=== PATIENT | female | born 1935 | race Caucasian/White ===

== ENCOUNTER → 2016-05-27 | Outpatient (CLI) | payer OTHER | LOC: BHFA 09:15 | PROVIDERS: ATTEND Internal Medicine Cardiovascular Disease | DX: I50.9 Heart failure, unspecified (principal) ==

== ENCOUNTER 2016-06-13 13:47 | Emergency (ER) | payer OTHER ==
--- NOTE | 2016-06-13 14:11 | EDPHY ---
H & P Time Seen by Provider: 06/13/16 14:08 HPI/ROS: CHIEF COMPLAINT: Hypotension. HISTORY OF PRESENT ILLNESS: The patient is a 81-year-old female with a history of hypertension and CHF who presents for low blood pressure earlier today. She has been taking her Metoprolol for many years for hypertension. She reports that her blood pressure readings have been intermittently low over the past few weeks so she has been decreasing her Metoprolol. Today she measured her blood pressure as 88/55 and it did not go away after a few hours. She became concerned and decided to come to the emergency department. She is eating and drinking normally. She denies recent sickness, black stool, or other complaints. She is not anticoagulated on blood thinners. Her blood pressure here is 134/71. REVIEW OF SYSTEMS: A complete 10-point review of systems was performed and is negative except for those items mentioned in the HPI. Past Medical/Surgical History: Hypertension, thyroid cancer, chronic atrial fibrillation, GERD, scoliosis, congestive heart failure, MVR/tricuspid valve replacement. Social History: Nonsmoker. Smoking Status: Never smoked Physical Exam: General Appearance: Alert, anxious. Eyes: Pupils equal and round, no conjunctival pallor or injection ENT, Mouth: Mucous membranes moist Neck: Normal inspection Respiratory: Lungs are clear to auscultation Cardiovascular: Irregularly irregular rate and rhythm. Gastrointestinal: Abdomen is soft and non- tender Neurological: A&O, nonfocal, normal gait Skin: Warm and dry, no rash Extremities: Nontender, no pedal edema Psychiatric: Anxious Constitutional: Initial Vital Signs Temperature (C) 36.4 C 06/13/16 13:54 Heart Rate 95 06/13/16 13:54 Respiratory Rate 16 06/13/16 13:54 Blood Pressure 103/78 06/13/16 13:54 O2 Sat (%) 97 06/13/16 13:54 O2 Delivery Mode Room Air Allergies/Adverse Reactions: benzonatate [From Tessalon Perles] Allergy (Mild, Verified 06/13/16 13:52) Rash soy Allergy (Verified 06/13/16 13:52) Home Medications: Medication Instructions Recorded Multivitamins W-Minerals [Thera M 1 each PO DAILY 10/26/14 Plus Tablet (*)] Gabapentin [Neurontin 300 MG (*)] 300 mg PO HS 12/07/15 Liothyronine Sodium [Cytomel 25 25 mcg PO DAILY 12/07/15 mcg (*)] Omeprazole 40 mg PO HS 12/07/15 traMADol [Ultram 50 mg (*)] 50 mg PO QID PRN 12/07/15 Ferrous Sulfate 140 mg PO DAILY #60 tablet.er 12/09/15 Levothyroxine [Synthroid 125 mcg 125 mcg PO Q2D@06 #0 tab 12/09/15 (*)] Levothyroxine [Synthroid 175 mcg 175 mcg PO Q2D@06 #0 tab 12/09/15 (*)] Lisinopril 2.5 mg PO DAILY #60 tablet 12/09/15 Metoprolol Succinate Xr [Toprol Xl 100 mg PO DAILY #60 tab 12/09/15 100 mg (*)] Cytomel 06/13/16 Entresto 24 mg/26 mg (RX) 06/13/16 Medical Decision Making - Diagnostics EKG Interpretation: EKG interpreted by me reveals atrial fibrillation, left bundle branch block. ST and T segments normal. Interpretation: abnormal EKG. ED Course/Re-evaluation: EKG ordered. An IV was established and labs ordered. Serial blood pressures remained normal. 1510: [facility] will [facility] the patient to schedule an appointment. 1518: Reassessed patient. Discussed the results of her labwork. She would like a BNP added to her labwork. [facility] has called her and she will see them in the office later this week. I answered all of her questions. I have informed her to take her blood pressure in the morning. If her blood pressure is running low, she will hold the metoprolol. She is comfortable with the plan. She was given return precautions prior to discharge. Differential Diagnosis: Differential diagnosis includes though not limited to dehydration, severe anemia , GI bleed, sepsis, rapid atrial fibrillation. - Data Points Laboratory Results: Laboratory Results 06/13/16 14:25 06/13/16 14:25 06/13/16 14:25 WBC 6.07 10^3/uL (3.80-9.50) RBC 3.71 L 10^6/uL (4.18-5.33) Hgb 11.8 L g/dL (12.6-16.3) Hct 35.0 L % (38.0-47.0) MCV 94.3 fL (81.5-99.8) MCH 31.8 pg (27.9-34.1) MCHC 33.7 g/dL (32.4-36.7) RDW 13.1 % (11.5-15.2) Plt Count 140 L 10^3/uL (150-400) MPV 10.3 fL (8.7-11.7) Neut % (Auto) 52.6 % (39.3-74.2) Lymph % (Auto) 31.1 % (15.0-45.0) [place] % (Auto) 7.6 % (4.5-13.0) Eos % (Auto) 7.4 % (0.6-7.6) Baso % (Auto) 1.0 % (0.3-1.7) Nucleat RBC Rel Count 0.0 % (0.0-0.2) Absolute Neuts (auto) 3.19 10^3/uL (1.70-6.50) Absolute Lymphs (auto) 1.89 10^3/uL (1.00-3.00) Absolute Monos (auto) 0.46 10^3/uL (0.30-0.80) Absolute Eos (auto) 0.45 H 10^3/uL (0.03-0.40) Absolute Basos (auto) 0.06 10^3/uL (0.02-0.10) Absolute Nucleated RBC 0.00 10^3/uL (0-0.01) Immature Gran % 0.3 % (0.0-1.1) Immature Gran # 0.02 10^3/uL (0.00-0.10) Sodium 141 mEq/L (134-144) Potassium 4.3 mEq/L (3.5-5.2) Chloride 106 mEq/L (97-110) Carbon Dioxide 25 mEq/l (22-31) Anion Gap 10 mEq/L (8-16) BUN 19 mg/dL (7-23) Creatinine 0.9 mg/dL (0.6-1.0) Estimated GFR > 60 Glucose 95 mg/dL (70-100) Calcium 9.1 mg/dL (8.5-10.4) Medications Given: Discontinued Medications Sodium Chloride (Ns) 500 mls @ 0 mls/hr IV EDNOW ONE PRN Reason: Wide Open Stop: 06/13/16 14:35 Last Admin: 06/13/16 14:34 Dose: 500 mls Departure - Departure Disposition: Home, Routine, Self-Care Clinical Impression: Dizziness Condition: Good Instructions: Dizziness (ED) Additional Instructions: Your blood pressure is normal in the ED today. Call Dr. Koch tomorrow about your blood pressure medications. You can expect to receive a call from [facility] to schedule an appointment. Return to the emergency department if you experience serious worsening of condition. Referrals: Elder Rodriguez MD [Primary Care Provider] - As per Instructions Chucho Koch MD [Medical Doctor] - As per Instructions Report Scribed for: Lashell Jerome Report Scribed by: Frandy George Date of Report: 06/13/16 Time of Report: 14:24 Physician Review and Approval Statement: 06/13/16 14:10 Portions of this note were transcribed by a medical insurance coding specialist. I personally performed a history, physical exam, medical decision making, and confirmed accuracy of information the transcribed note.
[2016-06-13 14:34] VITALS: O2SAT 96
[2016-06-13] MEDS ORDERED: NS 500 ML IV ONE (14:34)
[2016-06-13 14:42] LABS: % IMMATURE GRANULYOCYTES 0.3 % (0.0-1.1); ABSOLUTE IMMATURE GRANULOCYTES 0.02 10^3/uL (0.00-0.10); ADD DIFF? NO; ADD MORPH? NO; ADD SCAN? NO; ATYPICAL LYMPHOCYTE FLAG 10 (0-99); FRAGMENT RBC FLAG 0 (0-99); HEMOGLOBIN 11.8 g/dL (12.6-16.3); LEFT SHIFT FLG 0 (0-99); LIPEMIA HEMOLYSIS FLAG 80 (0-99); MEAN CELL HEMOGLOBIN 31.8 pg (27.9-34.1); MEAN CELL HEMOGLOBIN CONCENTR. 33.7 g/dL (32.4-36.7); MEAN CELL VOLUME 94.3 fL (81.5-99.8); MEAN PLATELET VOLUME 10.3 fL (8.7-11.7); PLATELET CLUMPS FLAG 10 (0-99); PLATELET COUNT 140 10^3/uL (150-400); RED BLOOD CELL COUNT 3.71 10^6/uL (4.18-5.33); RED CELL DISTRIBUTION WIDTH 13.1 % (11.5-15.2)
--- NOTE | 2016-06-13 14:46 | CPEKG ---
Heart Rate: 81 RR Interval: 741 QRSD Interval: 126 QT Interval: 412 QTC Interval: 479 QRS [place]: -56 T Wave [place]: 91 EKG Severity - ABNORMAL ECG - EKG Impression: ATRIAL FIBRILLATION EKG Impression: LEFT BUNDLE BRANCH BLOCK Electronically Signed By: Lashell Jerome 13-Jun-2016 21:27:41
[2016-06-13 14:53] LABS: ANION GAP 10 mEq/L (8-16); CALCIUM 9.1 mg/dL (8.5-10.4); CARBON DIOXIDE 25 mEq/l (22-31); CHLORIDE 106 mEq/L (97-110); CREATININE 0.9 mg/dL (0.6-1.0); GLOMERULAR FILTRATION RATE > 60; GLUCOSE 95 mg/dL (70-100); POTASSIUM 4.3 mEq/L (3.5-5.2); SODIUM 141 mEq/L (134-144)
[2016-06-13 15:46] VITALS: BP 126/69; PULSE 80; RESP 22; TEMP 97.3
== END 2016-06-13 15:47 | disposition home or self-care (01) ==
DX: R42 Dizziness and giddiness (principal); I10 Essential (primary) hypertension; I50.9 Heart failure, unspecified; D09.3 Carcinoma in situ of thyroid and other endocrine glands

== ENCOUNTER → 2016-08-03 | Outpatient (CLI) | payer OTHER | LOC: FIMAGING 12:45 | PROVIDERS: ATTEND Physical Medicine & Rehabilitation | DX: M50.30 Other cervical disc degeneration, unspecified cervical region (principal) ==

== ENCOUNTER 2016-09-20 11:45 | Inpatient (IN) | payer OTHER ==
--- NOTE | 2016-09-20 11:55 | EDPHY ---
HPI/HX/ROS/PE/MDM Narrative: CHIEF COMPLAINT: Mechanical fall; head trauma, neck pain HPI: This patient is a 81 year old female who presents to the Emergency Department via EMS in a c-collar following a mechanical fall earlier this morning. She states that she was walking out of her front door when she fell backward, hitting her head against the edge of the door. She denies loss of consciousness at the time of the fall. Upon arrival, she complains of pain to her posterior scalp and neck pain. She also complains of pain to the 3rd, 4th, and 5th digits of her left hand. She denies dizziness, confusion, weakness, or visual changes. No additional injuries. She has an extensive cardiac history, as below, but is not taking any anticoagulants at this time. REVIEW OF SYSTEMS: Aside from elements discussed in the HPI, a comprehensive 10-point review of systems was reviewed and is negative. PMH: Chronic atrial fibrillation, CHF, GERD, MVR/tricuspid valve replacement, hypertension, thyroid cancer, scoliosis SOCIAL HISTORY: Never smoked. Son at bedside. PHYSICAL EXAM: General:Patient is alert, conversant, in no acute distress. Head: 3cm linear laceration to the occiput ENT:Eyes are normal to inspection. ENT inspection normal. Neck: Normal inspection. Full range of motion. Respiratory:No respiratory distress. Breath sounds normal bilaterally. Cardiovascular: Regular rate and rhythm. Strong peripheral pulses. Normal cap refill. Abdomen:The abdomen is nontender to palpation. There are no peritoneal signs. There are normal bowel sounds. Back: Normal to inspection. No tenderness to palpation. Skin: Normal color. No rash. Warm and dry. Extremities: Normal appearance. Full range of motion. Neuro: Oriented x3. Normal motor function. Normal sensory function. (Thierno Reed) ED Course: Procedure: Laceration repair. I was requested by Dr. Reed to perform wound closure I explained the indications, risks and benefits for both laceration repair and anesthetic administration. Verbal consent was obtained from the patient and parent. The 7 cm laceration on the occiput was anesthetized using 0.5% bupivicaine with epinephrine . After anesthetic administered the patient was observed for a period of time and had no apparent adverse effects. The wound was cleaned, prepped, draped in normal sterile fashion and explored to its base. No foreign body seen, no foreign bodies palpated. A small galea defects identified closed with 2 simple interrupted 3 0 Vicryl sutures. Skin closed with 11 vince. The wound repair was complex. The procedure was performed by myself. Patient has been informed that scarring will occur, although efforts have been made to minimize this. (Connie Roth) PROCEDURES: Laceration repair performed as above by the PA, Dinah Roth. EKG INTERPRETATION: EKG was ordered and interpreted by myself. Please see [employer] system for official reading. ED COURSE: This 81 year old female presents with head trauma secondary to a mechanical fall. She is wearing a c-collar and complains of neck pain. She states she hit her head when falling and presents with a 3cm laceration to the occiput that will require cleaning and suture repair. Will process CT scan of the head and cervical spine and x-ray of the hand. She has an extensive cardiac history. No anticoagulant use currently. Though she claims that she tripped, will proceed with cardiac workup to ensure that her fall was not caused by a cardiac abnormality. Labs reviewed. Troponin is mildly elevated at 0.049. CT results reported to me by the radiologist. I discussed these with the patient and her son. 1413: On reevaluation, the patient continues to experience rapid atrial fibrillation in HR 120-140 range. She has had her laceration repaired by Dinah Roth and is resting comfortably. I discussed options with her for continued treatment and she requests admission for rapid a fib. 1414: Consultation with Dr. Chas Jerome, hospitalist, who accepts admission. The patient reports that she last took 50mg metoprolol at 700 this morning. She regularly takes 50mg in the morning and 25mg at night. (Thierno Reed) - Data Points Imaging Results: Imaging Impressions Cervical Spine CT 09/20/16 12:10 Impression: 1. Senescent features, with no acute abnormality identified on this unenhanced CT evaluation. 2. Small right occipital scalp hematoma. 3. Chronic schafer-paranasal sinus mucosal thickening with interim maxillary antrectomies since 03/13/2014. UNENHANCED CT SCAN OF THE CERVICAL SPINE TECHNIQUE: A multidetector unenhanced helical CT scan was obtained from the clivus caudally through the upper thoracic spine, with images reformatted at 1.50 mm increments, and are reviewed in soft tissue, bone, and lung windows. Parasagittal and paracoronal reconstructed images are reviewed on the workstation. The DFOV is 15.8 cm. A dose reduction protocol was used. FINDINGS: The bones are demineralized. There is partial osseous fusion seen along the central and posterior portions of the C4-C5 centra, with some stable anterolisthesis of dorsal cortical margins of C4 above C5. There is a trace retrolisthesis at C6-C7, unchanged. There is advanced degenerative disk space narrowing at C5-C6, and [id number] degenerative disk space narrowing at C6-C7. There are ventral and dorsal traction osteophytes at C5-C6 and C6-C7. There is a mild levocervical scoliosis. There is no acute fracture, or facet malalignment. The interspinous distances are normal. There is well-corticated incomplete ossification of the dorsal portion of the C6 spinous process. The craniocervical junction is normal. The predental space, and the atlantoaxial lateral mass alignment is normal. The base and the tip of the dens are normal. There is no prevertebral hematoma or soft tissue swelling, or epidural hematoma identified. The prevertebral soft tissues are normal for age, with bilateral carotid atherosclerotic calcifications. There is some mild biapical pleural- parenchymal fibrosis. The visualized superior mediastinal structures are unremarkable. At the C2-C3 level, there is moderate bilateral facet hypertrophy, with no significant central canal or neural foraminal stenosis. At the C3-C4 level, there is severe bilateral facet hypertrophy with some minimal circumferential disk bulging. There is no significant central canal stenosis. There is moderate right and severe left neural foraminal stenosis. At C4-C5 level, there is a degenerative anterolisthesis and dorsal disk osteophyte complex with severe right facet hypertrophy and moderate left facet hypertrophy. There is a mild central canal stenosis, and a severe right and mild left neural foraminal stenosis. At the C5-C6 level, there is severe degenerative disk space narrowing with ventral and dorsal traction osteophytes. There is facet hypertrophy, right greater than left, with uncovertebral osteophyte formations resulting in severe right neural foraminal stenosis, and mild left neural foraminal stenosis. There is a mild right paracentral canal stenosis, with accompanying lateral recess narrowing. At the C6-C7 level, there is [id number] degenerative disk space narrowing with ventral and dorsal traction osteophytes. There is mild bilateral facet hypertrophy with uncovertebral osteophytes, resulting in moderate central canal stenosis, and severe right and left neural foraminal stenoses. At the C7-T1 level, there is moderate bilateral facet hypertrophy. The central canal and neural foramina remain relatively patent. The visualized upper thoracic spine is notable for degenerative disk space narrowing at T2-T3 and T3-T4, with a trace T3-T4 anterolisthesis. There is also a mild upper dextrothoracic scoliosis. IMPRESSION: Multilevel advanced degenerative features, with no acute cervical osseous abnormality identified. There has been no significant interval change from MR imaging dated 08/03/2016. If there is further clinical concern regarding the patient's symptoms, correlative MR imaging could be considered, if otherwise not contraindicated. Findings and recommendations were discussed with Thierno Reed MD at 1:10 PM , on 09/20/2016. Hand X-Ray 09/20/16 12:10 Impression: 1. No acute osseous findings. 2. Additional findings as above. Head CT 09/20/16 12:10 Impression: 1. Senescent features, with no acute abnormality identified on this unenhanced CT evaluation. 2. Small right occipital scalp hematoma. 3. Chronic schafer-paranasal sinus mucosal thickening with interim maxillary antrectomies since 03/13/2014. UNENHANCED CT SCAN OF THE CERVICAL SPINE TECHNIQUE: A multidetector unenhanced helical CT scan was obtained from the clivus caudally through the upper thoracic spine, with images reformatted at 1.50 mm increments, and are reviewed in soft tissue, bone, and lung windows. Parasagittal and paracoronal reconstructed images are reviewed on the workstation. The DFOV is 15.8 cm. A dose reduction protocol was used. FINDINGS: The bones are demineralized. There is partial osseous fusion seen along the central and posterior portions of the C4-C5 centra, with some stable anterolisthesis of dorsal cortical margins of C4 above C5. There is a trace retrolisthesis at C6-C7, unchanged. There is advanced degenerative disk space narrowing at C5-C6, and [id number]-[id number]-[id number] degenerative disk space narrowing at C6-C7. There are ventral and dorsal traction osteophytes at C5-C6 and C6-C7. There is a mild levocervical scoliosis. There is no acute fracture, or facet malalignment. The interspinous distances are normal. There is well-corticated incomplete ossification of the dorsal portion of the C6 spinous process. The craniocervical junction is normal. The predental space, and the atlantoaxial lateral mass alignment is normal. The base and the tip of the dens are normal. There is no prevertebral hematoma or soft tissue swelling, or epidural hematoma identified. The prevertebral soft tissues are normal for age, with bilateral carotid atherosclerotic calcifications. There is some mild biapical pleural- parenchymal fibrosis. The visualized superior mediastinal structures are unremarkable. At the C2-C3 level, there is moderate bilateral facet hypertrophy, with no significant central canal or neural foraminal stenosis. At the C3-C4 level, there is severe bilateral facet hypertrophy with some minimal circumferential disk bulging. There is no significant central canal stenosis. There is moderate right and severe left neural foraminal stenosis. At C4-C5 level, there is a degenerative anterolisthesis and dorsal disk osteophyte complex with severe right facet hypertrophy and moderate left facet hypertrophy. There is a mild central canal stenosis, and a severe right and mild left neural foraminal stenosis. At the C5-C6 level, there is severe degenerative disk space narrowing with ventral and dorsal traction osteophytes. There is facet hypertrophy, right greater than left, with uncovertebral osteophyte formations resulting in severe right neural foraminal stenosis, and mild left neural foraminal stenosis. There is a mild right paracentral canal stenosis, with accompanying lateral recess narrowing. At the C6-C7 level, there is isgzcbgm-xr-[id number] degenerative disk space narrowing with ventral and dorsal traction osteophytes. There is mild bilateral facet hypertrophy with uncovertebral osteophytes, resulting in moderate central canal stenosis, and severe right and left neural foraminal stenoses. At the C7-T1 level, there is moderate bilateral facet hypertrophy. The central canal and neural foramina remain relatively patent. The visualized upper thoracic spine is notable for degenerative disk space narrowing at T2-T3 and T3-T4, with a trace T3-T4 anterolisthesis. There is also a mild upper dextrothoracic scoliosis. IMPRESSION: Multilevel advanced degenerative features, with no acute cervical osseous abnormality identified. There has been no significant interval change from MR imaging dated 08/03/2016. If there is further clinical concern regarding the patient's symptoms, correlative MR imaging could be considered, if otherwise not contraindicated. Findings and recommendations were discussed with Thierno Reed MD at 1:10 PM , on 09/20/2016. Laboratory Results: Laboratory Results 09/20/16 12:25 09/20/16 12:25 09/20/16 09/20/16 09/20/16 12:25 12:25 12:25 WBC 6.84 10^3/uL 10^3/uL (3.80-9.50) RBC 3.89 10^6/uL L 10^6/uL (4.18-5.33) Hgb 12.0 g/dL L g/dL (12.6-16.3) Hct 36.5 % L % (38.0-47.0) MCV 93.8 fL fL (81.5-99.8) MCH 30.8 pg pg (27.9-34.1) MCHC 32.9 g/dL g/dL (32.4-36.7) RDW 12.5 % % (11.5-15.2) Plt Count 166 10^3/uL 10^3/uL (150-400) MPV 10.3 fL fL (8.7-11.7) Neut % (Auto) 57.7 % % (39.3-74.2) Lymph % (Auto) 24.6 % % (15.0-45.0) [place] % (Auto) 9.2 % % (4.5-13.0) Eos % (Auto) 7.2 % % (0.6-7.6) Baso % (Auto) 1.0 % % (0.3-1.7) Nucleat RBC Rel Count 0.0 % % (0.0-0.2) Absolute Neuts (auto) 3.95 10^3/uL 10^3/uL (1.70-6.50) Absolute Lymphs (auto) 1.68 10^3/uL 10^3/uL (1.00-3.00) Absolute Monos (auto) 0.63 10^3/uL 10^3/uL (0.30-0.80) Absolute Eos (auto) 0.49 10^3/uL H 10^3/uL (0.03-0.40) Absolute Basos (auto) 0.07 10^3/uL 10^3/uL (0.02-0.10) Absolute Nucleated RBC 0.00 10^3/uL 10^3/uL (0-0.01) Immature Gran % 0.3 % % (0.0-1.1) Immature Gran # 0.02 10^3/uL 10^3/uL (0.00-0.10) PT 15.1 SEC H SEC (12.0-15.0) INR 1.19 H (0.83-1.16) APTT 26.3 SEC SEC (23.0-38.0) Sodium 137 mEq/L mEq/L (134-144) Potassium 4.7 mEq/L mEq/L (3.5-5.2) Chloride 104 mEq/L mEq/L (97-110) Carbon Dioxide 24 mEq/l mEq/l (22-31) Anion Gap 9 mEq/L mEq/L (8-16) BUN 19 mg/dL mg/dL (7-23) Creatinine 0.8 mg/dL mg/dL (0.6-1.0) Estimated GFR > 60 Glucose 99 mg/dL mg/dL (70-100) Calcium 9.2 mg/dL mg/dL (8.5-10.4) Troponin I 0.049 ng/mL H ng/mL (0-0.034) Medications Given: Discontinued Medications Hydrocodone Bitart/Acetaminophen ([place] 5/325) 1 tab PO EDNOW ONE Stop: 09/20/16 12:33 Last Admin: 09/20/16 12:41 Dose: 1 tab General Time Seen by Provider: 09/20/16 11:53 Initial Vital Signs: Initial Vital Signs Temperature (C) 36.5 C 09/20/16 11:56 Heart Rate 112 H 09/20/16 11:56 Respiratory Rate 18 09/20/16 11:56 Blood Pressure 151/84 H 09/20/16 11:56 O2 Sat (%) 95 09/20/16 11:56 O2 Delivery Mode Room Air Allergies/Adverse Reactions: benzonatate [From Tessalon Perles] Allergy (Mild, Verified 06/13/16 13:52) Rash soy Allergy (Verified 06/13/16 13:52) Home Medications: Medication Instructions Recorded Multivitamins W-Minerals [Thera M 1 each PO DAILY 10/26/14 Plus Tablet (*)] Gabapentin [Neurontin 300 MG (*)] 300 mg PO HS 12/07/15 Liothyronine Sodium [Cytomel 25 25 mcg PO DAILY 12/07/15 mcg (*)] Omeprazole 40 mg PO HS 12/07/15 traMADol [Ultram 50 mg (*)] 50 mg PO QID PRN 12/07/15 Ferrous Sulfate 140 mg PO DAILY #60 tablet.er 12/09/15 Levothyroxine [Synthroid 125 mcg 125 mcg PO Q2D@06 #0 tab 12/09/15 (*)] Levothyroxine [Synthroid 175 mcg 175 mcg PO Q2D@06 #0 tab 12/09/15 (*)] Lisinopril 2.5 mg PO DAILY #60 tablet 12/09/15 Metoprolol Succinate Xr [Toprol Xl 100 mg PO DAILY #60 tab 12/09/15 100 mg (*)] Cytomel 06/13/16 Entresto 24 mg/26 mg (RX) 06/13/16 Departure - Departure Disposition: [facility] Inpatient Acute Clinical Impression: Rapid atrial fibrillation Scalp laceration Qualifiers: Encounter type: initial encounter Qualified Code(s): S01.01XA - Laceration without foreign body of scalp, initial encounter Head trauma Qualifiers: Encounter type: initial encounter Qualified Code(s): S09.90XA - Unspecified injury of head, initial encounter Fall Qualifiers: Encounter type: initial encounter Qualified Code(s): W19.XXXA - Unspecified fall, initial encounter Condition: Fair Referrals: Patient,NotPresent [Unknown] - As per Instructions Report Scribed for: Thierno Reed Report Scribed by: Nancy Whiting Date of Report: 09/20/16 Time of Report: 11:55 Physician Review and Approval Statement: Portions of this note were transcribed by an ED scribe. I personally performed the history, physical exam, and medical decision making; and confirm the accuracy of the information in the transcribed note.
[2016-09-20] MEDS ORDERED: HYDROCODONE/APAP 5/325 TAB PO ONE (12:32)
--- NOTE | 2016-09-20 12:39 | CPEKG ---
Heart Rate: 117 RR Interval: 513 QRSD Interval: 124 QT Interval: 368 QTC Interval: 514 QRS [place]: -66 T Wave [place]: 88 EKG Severity - ABNORMAL ECG - EKG Impression: ATRIAL FIBRILLATION EKG Impression: LEFT BUNDLE BRANCH BLOCK Electronically Signed By: Thierno Reed 20-Sep-2016 15:16:14
[2016-09-20 12:40] LABS: % IMMATURE GRANULYOCYTES 0.3 % (0.0-1.1); ABSOLUTE IMMATURE GRANULOCYTES 0.02 10^3/uL (0.00-0.10); ADD DIFF? NO; ADD MORPH? NO; ADD SCAN? NO; ATYPICAL LYMPHOCYTE FLAG 20 (0-99); FRAGMENT RBC FLAG 0 (0-99); HEMATOCRIT 36.5 % (38.0-47.0); LEFT SHIFT FLG 0 (0-99); LIPEMIA HEMOLYSIS FLAG 80 (0-99); MEAN CELL HEMOGLOBIN 30.8 pg (27.9-34.1); MEAN CELL HEMOGLOBIN CONCENTR. 32.9 g/dL (32.4-36.7); MEAN CELL VOLUME 93.8 fL (81.5-99.8); MEAN PLATELET VOLUME 10.3 fL (8.7-11.7); PLATELET CLUMPS FLAG 0 (0-99); PLATELET COUNT 166 10^3/uL (150-400); RED BLOOD CELL COUNT 3.89 10^6/uL (4.18-5.33); RED CELL DISTRIBUTION WIDTH 12.5 % (11.5-15.2)
[2016-09-20 12:52] LABS: INR 1.19 (0.83-1.16); PROTIME(PATIENT) 15.1 SEC (12.0-15.0)
[2016-09-20 12:53] LABS: APTT 26.3 SEC (23.0-38.0)
[2016-09-20 12:59] LABS: ANION GAP 9 mEq/L (8-16); CALCIUM 9.2 mg/dL (8.5-10.4); CARBON DIOXIDE 24 mEq/l (22-31); CHLORIDE 104 mEq/L (97-110); CREATININE 0.8 mg/dL (0.6-1.0); GLOMERULAR FILTRATION RATE > 60; GLUCOSE 99 mg/dL (70-100); POTASSIUM 4.7 mEq/L (3.5-5.2); SODIUM 137 mEq/L (134-144)
[2016-09-20 13:10] LABS: TROPONIN I 0.049 ng/mL (0-0.034)
[2016-09-20] MEDS ORDERED: METOPROLOL TARTRATE 25 MG TAB PO ONE (14:19)
[2016-09-20] MEDS ORDERED: ONDANSETRON 4 MG/2 ML VIAL IVP ONE (14:35)
[2016-09-20] MEDS ORDERED: ONDANSETRON 4 MG/2 ML VIAL ONE (15:14)
[2016-09-20] MEDS ORDERED: ONDANSETRON 4 MG/2 ML VIAL IVP PRN (15:18)
[2016-09-20] MEDS ORDERED: ONDANSETRON DISINTEGRATING 4 MG TAB PO PRN (15:46)
[2016-09-20] MEDS ORDERED: ACETAMINOPHEN 325 MG TAB PO PRN (15:46)
[2016-09-20] MEDS ORDERED: MAGNESIUM HYDROXIDE 30 ML UDCUP PO PRN (16:18)
[2016-09-20] MEDS ORDERED: POLYETHYLENE GLYCOL 3350 17 GM PKT PO PRN (16:18)
[2016-09-20] MEDS ORDERED: BISACODYL 10 MG SUPP PR PRN (16:18)
[2016-09-20] MEDS ORDERED: LACTULOSE 20 GM/30 ML UDCUP PO PRN (16:18)
[2016-09-20] MEDS ORDERED: PROMETHAZINE HCL 25 MG TAB PO PRN (16:58)
[2016-09-20] MEDS ORDERED: NS 1,000 ML IV SCH (17:00)
--- NOTE | 2016-09-20 17:05 | PDGENHP ---
History and Physical - Chief Complaint Acute fall - History of Present Illness PCP: Dr. Rodriguez Primary printing roller polisher: Dr. Cuevas/ Dr. Koch HPI: 81-year-old female presents with acute fall characterized as mechanical, falling backward, experiencing associated pain located in the right scalp with immediate bleeding and hematoma formation as well as neck discomfort and left hand trauma. The patient reports that she had been otherwise feeling well and she was at a retail store with her son. She was beginning to feel fatigued from standing so long and her son advised that she go sit down in her car. While she is ambulating through the store, she reports that she fell backward, losing her balance and resulting in trauma to the head neck and hand. She denies any loss of consciousness, denies chest pain palpitations or any other infectious symptoms. She does endorse chronic neck pain for which she has been undergoing neurosurgical evaluation for possible surgery. Her only recent medication change was discontinuation of Entresto aeveral months ago secondary to hypotension, increase in metoprolol to 50 mg of succinate in the morning, 25 mg succinate the evening. History Information - Allergies/Home Medication List Allergies/Adverse Reactions: benzonatate [From Doctor kineticsalJNS [employer]ers[employer]in] Allergy (Mild, Verified 06/13/16 13:52) Rash soy Allergy (Verified 06/13/16 13:52) Home Medications: Gabapentin [Neurontin 300 MG (*)] 300 mg PO HS 12/07/15 [Last Taken 09/19/16] Liothyronine Sodium [Cytomel 25 mcg (*)] 25 mcg PO DAILY 12/07/15 [Last Taken ] Omeprazole 40 mg PO HS 12/07/15 [Last Taken 09/19/16] Benazepril HCl 5 mg PO DAILY 09/20/16 [Last Taken 09/20/16] Herbals/Supplements -Info Only 1 ea PO DAILY 09/20/16 [Last Taken Unknown] Levothyroxine [Synthroid 125 mcg (*)] 125 mcg PO DAILY@09/20/16 [Last Taken 09/20/16] Metoprolol Succinate Xr [Toprol Xl 25 mg (*)] 25 mg PO HS 09/20/16 [Last Taken 09/19/16] Metoprolol Succinate Xr [Toprol Xl 25 mg (*)] 50 mg PO DAILY 09/20/16 [Last Taken 09/20/16] Multivitamins [Multivitamin (*)] 1 each PO DAILY 09/20/16 [Last Taken 09/20/16] I have personally reviewed and updated: family history, medical history, social history, surgical history - Past Medical History atrial fibrillation ( Permanent, not on systemic anticoagulation), CHF ( combined, with known reduced ejection fraction and underlying left bundle branch morphology), GERD, hypertension Additional medical history: TUSHAR. Osteoporosis. Iron deficient anemia. Hypothyroidism - Surgical History Additional surgical history: left atrial appendage with mitral valve and tricuspid valve repair surgeries. Sinus surgery - Family History Additional family history: no recent sick family contacts - Social History Smoking Status: Never smoked Alcohol Use: None Drug Use: None Additional social history: normally independent in her ADLs, has a son who lives locally Review of Systems ROS: 10pt was reviewed & negative except for what was stated in HPI & below Muscolosketal: Reports: other ( neck pain, scalp pain, left hand pain) Skin: Reports: other ( ecchymosis over left hand) Physical Exam Temp Pulse Resp BP Pulse Ox 36.5 C 127 H 19 143/92 H 89 L 09/20/16 11:56 09/20/16 16:00 09/20/16 16:00 09/20/16 16:00 09/20/16 16:00 Constitutional: no apparent distress, appears nourished, not in pain, uncomfortable Eyes: PERRL, anicteric sclera, EOMI Ears, Nose, Mouth, Throat: moist mucous membranes, hearing normal, ears appear normal, no oral mucosal ulcers, other ( no visible ulceration or abscess in her left maxillary incisor area) Cardiovascular: irregularly irregular, tachycardia, No systolic murmur, No edema Respiratory: inspiratory crackles ( clear with cough, left base), No reduced air movement, No expiratory wheeze, No bronchial breath sounds Gastrointestinal: normoactive bowel sounds, soft, non-tender abdomen, no palpable masses Skin: other ( ecchymoses over left 4th digit without any erythema surrounding the right scalp abrasion site) Musculoskeletal: other ( limited range of motion left 4th digit secondary to edema, minimal pain, full range of motion of the PIP and the IP) Neurologic: AAOx3, No weakness ( motor strength 5/5 bilateral lower extremities) , No facial droop Psychiatric: interacting appropriately, not anxious, not encephalopathic, thought process linear Lab Data & Imaging Review 09/20/16 12:25 09/20/16 12:25 WBC 6.84 10^3/uL (3.80-9.50) 09/20/16 12:25 RBC 3.89 10^6/uL (4.18-5.33) L 09/20/16 12:25 Hgb 12.0 g/dL (12.6-16.3) L 09/20/16 12:25 Hct 36.5 % (38.0-47.0) L 09/20/16 12:25 MCV 93.8 fL (81.5-99.8) 09/20/16 12:25 MCH 30.8 pg (27.9-34.1) 09/20/16 12:25 MCHC 32.9 g/dL (32.4-36.7) 09/20/16 12:25 RDW 12.5 % (11.5-15.2) 09/20/16 12:25 Plt Count 166 10^3/uL (150-400) 09/20/16 12:25 MPV 10.3 fL (8.7-11.7) 09/20/16 12:25 Neut % (Auto) 57.7 % (39.3-74.2) 09/20/16 12:25 Lymph % (Auto) 24.6 % (15.0-45.0) 09/20/16 12:25 Gilchrist % (Auto) 9.2 % (4.5-13.0) 09/20/16 12:25 Eos % (Auto) 7.2 % (0.6-7.6) 09/20/16 12:25 Baso % (Auto) 1.0 % (0.3-1.7) 09/20/16 12:25 Nucleat RBC Rel Count 0.0 % (0.0-0.2) 09/20/16 12:25 Absolute Neuts (auto) 3.95 10^3/uL (1.70-6.50) 09/20/16 12:25 Absolute Lymphs (auto) 1.68 10^3/uL (1.00-3.00) 09/20/16 12:25 Absolute Monos (auto) 0.63 10^3/uL (0.30-0.80) 09/20/16 12:25 Absolute Eos (auto) 0.49 10^3/uL (0.03-0.40) H 09/20/16 12:25 Absolute Basos (auto) 0.07 10^3/uL (0.02-0.10) 09/20/16 12:25 Absolute Nucleated RBC 0.00 10^3/uL (0-0.01) 09/20/16 12:25 Immature Gran % 0.3 % (0.0-1.1) 09/20/16 12:25 Immature Gran # 0.02 10^3/uL (0.00-0.10) 09/20/16 12:25 PT 15.1 SEC (12.0-15.0) H 09/20/16 12:25 INR 1.19 (0.83-1.16) H 09/20/16 12:25 APTT 26.3 SEC (23.0-38.0) 09/20/16 12:25 Sodium 137 mEq/L (134-144) 09/20/16 12:25 Potassium 4.7 mEq/L (3.5-5.2) 09/20/16 12:25 Chloride 104 mEq/L (97-110) 09/20/16 12:25 Carbon Dioxide 24 mEq/l (22-31) 09/20/16 12:25 Anion Gap 9 mEq/L (8-16) 09/20/16 12:25 BUN 19 mg/dL (7-23) 09/20/16 12:25 Creatinine 0.8 mg/dL (0.6-1.0) 09/20/16 12:25 Estimated GFR > 60 09/20/16 12:25 Glucose 99 mg/dL (70-100) 09/20/16 12:25 Calcium 9.2 mg/dL (8.5-10.4) 09/20/16 12:25 Troponin I 0.049 ng/mL (0-0.034) H 09/20/16 12:25 Visualized and Interpreted EKG results: Yes EKG Interpretation: Positive for: other ( atrial fibrillation with left bundle branch block) Assessment & Plan Assessment: 81-year-old female presents with acute mechanical fall resulting in permanent atrial fibrillation with acute rapid ventricular response Plan: 1. Fall. Acute, mechanical, resulting in trauma to the left scalp requiring vnice -head CT without intracranial hemorrhage, neck CT without any acute fracture, left hand x-ray demonstrating severe osteoarthritis but no fracture -hold on further trauma evaluation -supportive care with pain medications -get PT and OT evaluations 2. Permanent atrial fibrillation. With acute rapid ventricular response in the setting of pain secondary to above, new problem this provider, further workup indicated. -reviewed outside records including echocardiogram demonstrating ejection fraction of 30-35%, normal right ventricle, moderate to severe left atrial dilatation -reviewed outside records including 12/09/[address] Inocente Rascon, characterizing patient's most recent hospitalization for combined CHF, resulting in increased dosage to metoprolol succinate 100 mg daily, discharged with Lasix and DIANA-inhibitor - discussed with Dr. Reed in the emergency department, given that her heart rate is currently in the 140s in the setting of pain, we have agreed that we will attempt pain management as well as administer 25 mg of metoprolol tartrate at this time orally and monitor rhythm and rate on telemetry in the PCU given her troponin is 0.05 -repeat serum troponin level this evening and tomorrow a.m. to ensure no worsening ischemia from related injury -get TSH level to ensure she is not over corrected -continue metoprolol succinate 50 mg in the morning, 25 mg at night -patient currently not on any form of CVA prevention given that she had left atrial appendage surgery and she does not believe that she warrants systemic anti coagulation or aspirin therapy 3. Chronic CHF. Combined systolic and diastolic, no evidence of acute exacerbation, monitor volume status closely as running low rate IV fluids in the setting of nausea -continue home medications once reconciled Diet. Cardiac Prophylaxis. High risk patient, Lovenox for Code. Full Disposition. Anticipated discharge is 09/21/2016, pending further workup and stabilization of conditions outlined above.
[2016-09-20] MEDS: HYDROCODONE/APAP 10/325 TAB PO PRN (20:14)
[2016-09-20] MEDS: SENNOSIDES/DOCUSATE SODIUM TAB PO SCH (20:14)
[2016-09-20] MEDS: METOPROLOL SUCCINATE XR 25 MG TAB PO SCH (20:14)
[2016-09-20 20:52] LABS: COLOR YELLOW; LEUKOCYTE ESTERASE,URINE 1+ (NEGATIVE); NITRITE,URINE NEGATIVE (NEGATIVE)
[2016-09-20 21:23] LABS: BACTERIA TRACE /hpf (NONE SEEN); MUCUS TRACE /lpf (NONE-1+)
[2016-09-20 21:24] LABS: RBC,URINE NONE SEEN /hpf (0-3); WBC,URINE 0-1 /hpf (0-3)
[2016-09-20 21:34] LABS: TROPONIN I 0.053 ng/mL (0-0.034)
[2016-09-21] MEDS: PANTOPRAZOLE SODIUM 40 MG TAB PO SCH ×2 (00:47→20:59)
[2016-09-21] MEDS: GABAPENTIN 300 MG CAP PO SCH ×2 (00:47→20:59)
[2016-09-21] MEDS: ONDANSETRON 4 MG/2 ML VIAL IVP PRN ×2 (01:56→10:38)
[2016-09-21 04:44] LABS: % IMMATURE GRANULYOCYTES 0.3 % (0.0-1.1); ABSOLUTE IMMATURE GRANULOCYTES 0.02 10^3/uL (0.00-0.10); ADD DIFF? NO; ADD MORPH? NO; ADD SCAN? NO; ATYPICAL LYMPHOCYTE FLAG 20 (0-99); FRAGMENT RBC FLAG 0 (0-99); HEMOGLOBIN 10.6 g/dL (12.6-16.3); LEFT SHIFT FLG 0 (0-99); LIPEMIA HEMOLYSIS FLAG 80 (0-99); MEAN CELL HEMOGLOBIN 30.8 pg (27.9-34.1); MEAN CELL HEMOGLOBIN CONCENTR. 33.1 g/dL (32.4-36.7); MEAN PLATELET VOLUME 10.4 fL (8.7-11.7); PLATELET CLUMPS FLAG 10 (0-99); PLATELET COUNT 153 10^3/uL (150-400); RED BLOOD CELL COUNT 3.44 10^6/uL (4.18-5.33); RED CELL DISTRIBUTION WIDTH 12.6 % (11.5-15.2)
[2016-09-21 05:00] LABS: ALANINE AMINOTRANSFERASE 20 IU/L (9-52); ALKALINE PHOSPHATASE 71 IU/L (38-126); ANION GAP 8 mEq/L (8-16); ASPARTATE AMINOTRANSFERASE 17 IU/L (14-46); CALCIUM 8.8 mg/dL (8.5-10.4); CARBON DIOXIDE 24 mEq/l (22-31); CHLORIDE 106 mEq/L (97-110); CREATININE 0.8 mg/dL (0.6-1.0); GLOMERULAR FILTRATION RATE > 60; GLUCOSE 89 mg/dL (70-100); MAGNESIUM 1.9 mg/dL (1.6-2.3); POTASSIUM 4.6 mEq/L (3.5-5.2); SODIUM 138 mEq/L (134-144); TOTAL PROTEIN 5.9 g/dL (6.3-8.2)
[2016-09-21 05:11] LABS: TROPONIN I 0.065 ng/mL (0-0.034)
[2016-09-21] MEDS ORDERED: LEVOTHYROXINE 125 MCG TAB PO SCH (06:00)
[2016-09-21] MEDS: HYDROCODONE/APAP 10/325 TAB PO PRN (07:39)
[2016-09-21] MEDS: BENAZEPRIL HCL 10 MG TAB PO SCH (08:50)
[2016-09-21] MEDS: METOPROLOL SUCCINATE XR 50 MG TAB PO SCH (08:50)
[2016-09-21] MEDS: MULTIVITAMINS 1 EACH TAB PO SCH (08:51)
[2016-09-21] MEDS: ENOXAPARIN 40 MG/0.4 ML SYR SC SCH (08:52)
[2016-09-21] MEDS: SENNOSIDES/DOCUSATE SODIUM TAB PO SCH ×2 (08:52→20:59)
[2016-09-21] MEDS ORDERED: LIOTHYRONINE SODIUM 25 MCG TAB PO SCH (09:00)
[2016-09-21] MEDS ORDERED: Herbals/Supplements -Info Only PO SCH (09:00)
--- NOTE | 2016-09-21 11:05 | HOSPPROG ---
Hospitalist Progress Note Assessment/Plan: Head injury after ground level fall - Initial head CT neg for intracranial bleed , +scalp hematoma. I suspect post-concussive syndrome with nausea, dizziness, difficulty with ambulation. She has also had some nausea and vomiting. Given her persistent symptoms, will repeat head CT now. I discussed the case with Dr. Caldwell from the trauma service. Exogenous hyperthyroidism - h/o thyroid cancer, followed by Dr. Ribeiro, who has apparently been recommending to her that she decrease her thyroid dose. Her TSH has been undetectable by our lab history dating back to 2009. She is agreeable to reducing her dose. Decrease Levothyroxine to 75 from 125 and Liothyronine to 12.5 from 25. Will need f/u with Dr. Ribeiro and repeat TSH in 4-6 weeks. A fib - now rate controlled. Hyperthyroidism may be provoking. She has declined anti-coagulation or ASA. Would re-visit daily ASA prior to dc, though defer for now given her head injury. Elevated trop - flat this am. Suspect strain in setting of rapid a fib. No chest pain. LBBB - this is chronic. Reviewed echo from 11/2015, EF 30-35%, moderate MR with severely dilated left and right atrium. Given her dizziness, fall and rapid A fib, will repeat echo to ensure no worsening VHD as a cause of her dizziness and falls. Dispo - change to inpt as she'll need acute PT/OT, further w/u as above, not safe for discharge today Subjective: Pt feels very unstable on her feet, "I can't walk". Complains of dizziness, headache. No CP or SOB. Objective: Vital Signs Temp Pulse Resp BP Pulse Ox 36.4 C 74 18 133/72 H 99 09/21/16 07:59 09/21/16 07:59 09/21/16 07:59 09/21/16 07:59 09/21/16 07:59 Laboratory Results 09/21/16 04:09 09/21/16 04:09 09/20/16 09/21/16 09/22/16 05:59 05:59 05:59 Intake Total 2240 Output Total 950 Balance 1290 PT 15.1 SEC (12.0-15.0) H 09/20/16 12:25 INR 1.19 (0.83-1.16) H 09/20/16 12:25 - Physical Exam Constitutional: no apparent distress Eyes: PERRL, EOMI Ears, Nose, Mouth, Throat: moist mucous membranes, other (scalp hematoma) Cardiovascular: irregularly irregular Respiratory: no respiratory distress, clear to auscultation Gastrointestinal: normoactive bowel sounds, soft, non-tender abdomen Skin: warm Neurologic: AAOx3 Psychiatric: interacting appropriately ICD10 Worksheet Patient Problems: Problems Problem Status Onset Atrial fibrillation Acute Rapid atrial fibrillation Acute Congestive heart failure Acute Chronic Disease [facility]/Transitional Care Acute Scalp laceration Acute Head trauma Acute Fall Acute
--- NOTE | 2016-09-21 14:45 | ECHO ---
[id number] + + [address] : : [place] [address] : : [phone] + + Adult Echocardiographic Report + ---------+ :Name: TRE DURAN MStudy Date: 09/21/2016 12:59 PM : : Hospital Admission Number: [id number] Cassidy harmon: 213: :: 1935 Gender: Female Height: 67 i n : :Age: 81 yrs Race: WH,White Weight: 170 lb : :Reason For Study: Eval LV Fx : : BSA: 1.9 met ers2 : :History: Dizziness, falls, Mitral Valve repair, Tricuspid valve : :repair. : + ---------+ MMode/2D Measurements \T\ Calculations IVSd: 1.0 cm LVIDd: 5.3 cm FS: 13.0 % MV Diam: 3.0 cm LVPWd: 1.2 cm LVIDs: 4.6 cm EDV(Teich): 136.6 ml ESV(Teich): 98.7 ml EF(Teich): 27.7 % Ao root diam: 3.4 cm ACS: 2.0 cm LA dimension: 5.1 cm Normal Measurement Values: + + :LVIDd (3.5-5.7cm) IVSd (0.6-1.1cm) LVPWd (0.6-1.1cm) Aortic Root (2.0-3.7cm)Left Atrium (1.5-4.0cm): :LV Vol(d) (76-115ml) LV Vol(s) (29-48ml) Ejec Fraction (50-65%)PV Uriel (0.6- 1.2m/s) TV Uriel (0.4-1.0m/s) : :MV E Uriel (0.8-1.0m/s)MV A Uriel (0.3-1.0m/s)LVOT Uriel (0.7-1.2m/s) Asc Ao Uriel ( 0.9-1.8m/s) : + + Doppler Measurements \T\ Calculations MV E max uriel: MV V2 mean: MV P1/2t max uriel: Ao mean P.4 cm/sec 88.0 cm/sec 150.7 cm/sec 3.7 mmHg MV dec time: MV mean PG: MV P1/2t: 46.4 msec Ao V2 mean: 0.18 sec 3.6 mmHg MVA(P1/2t): 4.7 cm2 90.4 cm/sec MV V2 VTI: 29.4 cm MV dec slope: Ao V2 VTI: MV area (1 diam): 28.0 cm 7.1 cm2 950.9 cm/sec2 MV Flow area (1diam): 7.1 cm2 LV V1 max: MR max uriel: MR(RF 1 diam): SV(MV 1 diam): 68.6 cm/sec 366.5 cm/sec 10.3 % 208.1 ml LV V1 max PG: MR max PG: SI(MV 1 diam): 1.9 mmHg 53.7 mmHg 110.3 ml/m2 LV V1 mean P.1 mmHg LV V1 mean: 50.3 cm/sec LV V1 VTI: 14.7 cm PA V2 max: PI end-d uriel: RF(MV,Ao)(1 diam): - 73.3 cm/sec 149.3 cm/sec 0.21 PA max P.1 mmHg Left Ventricle The left ventricle is normal in size. There is normal left ventricular wall thickness. Ejection Fraction = 30%. There is severe global hypokinesis of the left ventricle. Right Ventricle The right ventricle is normal size. Atria The left atrium is severely dilated. The right atrium is severely dilated. Mitral Valve There is mild mitral annular calcification. There is no mitral valve stenosis. There is mild mitral regurgitation. An annuloplasty ring is noted in the mitral position. Tricuspid Valve There is trace tricuspid regurgitation. An annuloplasty ring is noted in the tricuspid position. Aortic Valve The aortic valve is trileaflet. There is no aortic stenosis. There is no aortic insufficiency. Pulmonic Valve The pulmonic valve is normal in structure and function. Mild pulmonic valvular regurgitation. Great Vessels The aortic root is normal size. Pericardium/Pleural There is no pericardial effusion. Conclusion A complete two-dimensional transthoracic echocardiogram was performed (2D, M-mode, Doppler and color flow Doppler). There is severe global hypokinesis of the left ventricle. Ejection Fraction = 30%. The right ventricle is normal size. The left atrium is severely dilated. There is mild mitral annular calcification. There is mild mitral regurgitation. An annuloplasty ring is noted in the mitral position. An annuloplasty ring is noted in the tricuspid position. There is trace tricuspid regurgitation. There is no aortic stenosis. The aortic valve is trileaflet. Mild pulmonic valvular regurgitation. The aortic root is normal size. There is no pericardial effusion. Compared with 12/08/2015, MR improved Final Reading Physician: Dr Yuly Thomas electronically signed on 09/21/2016 02:43 PM Ordering Physician: Kacey Henderson Performed By: Cesar Parker, RDCS
[2016-09-21] MEDS: METOPROLOL SUCCINATE XR 25 MG TAB PO SCH (20:59)
[2016-09-22] MEDS: LEVOTHYROXINE 75 MCG TAB PO SCH (05:56)
[2016-09-22] MEDS: SENNOSIDES/DOCUSATE SODIUM TAB PO SCH ×2 (08:23→21:24)
[2016-09-22] MEDS: METOPROLOL SUCCINATE XR 50 MG TAB PO SCH (08:24)
[2016-09-22] MEDS: BENAZEPRIL HCL 10 MG TAB PO SCH (08:24)
[2016-09-22] MEDS: LIOTHYRONINE SODIUM 25 MCG TAB PO SCH (08:25)
[2016-09-22] MEDS: MULTIVITAMINS 1 EACH TAB PO SCH (08:26)
[2016-09-22] MEDS: ENOXAPARIN 40 MG/0.4 ML SYR SC SCH (08:33)
--- NOTE | 2016-09-22 15:14 | PDIAF ---
- Diagnosis Diagnosis: fall Code Status: Full Code - Medication Management Discharge Medications: Medications to Continue on Transfer Gabapentin [Neurontin 300 MG (*)] 300 mg PO HS 12/07/15 [Last Taken 09/19/16] Omeprazole 40 mg PO HS 12/07/15 [Last Taken 09/19/16] Benazepril HCl 5 mg PO DAILY 09/20/16 [Last Taken 09/20/16] Herbals/Supplements -Info Only 1 ea PO DAILY 09/20/16 [Last Taken Unknown] Metoprolol Succinate Xr [Toprol Xl 25 mg (*)] 25 mg PO HS 09/20/16 [Last Taken 09/19/16] Metoprolol Succinate Xr [Toprol Xl 25 mg (*)] 50 mg PO DAILY 09/20/16 [Last Taken 09/20/16] Multivitamins [Multivitamin (*)] 1 each PO DAILY 09/20/16 [Last Taken 09/20/16] Acetaminophen [Tylenol 325mg (*)] 650 mg PO Q4HRS PRN #0 tab 09/22/16 [Last Taken Unknown] Levothyroxine [Synthroid 75 mcg (*)] 75 mcg PO DAILY AT 6AM #30 tab 09/22/16 [ Last Taken Unknown] Liothyronine Sodium [Cytomel 25 mcg (*)] 12.5 mcg PO DAILY #0 tab 09/22/16 [ Last Taken Unknown] Discharge Medications: Refer to the Discharge Home Medication list for PRN reason. - Orders Services needed: Registered Nurse, Physical Therapy Diet Recommendation: no restrictions on diet Diet Texture: Regular Texture Diet - Follow Up Care Current Providers and Referrals: Patient,NotPresent [Unknown] - As per Instructions
--- NOTE | 2016-09-22 15:26 | GDS ---
[f rep st] DISCHARGE SUMMARY DISCHARGE DIAGNOSES: 1. Scalp laceration after a ground level fall. 2. Exogenous hyperthyroidism. 3. Atrial fibrillation with rapid ventricular response likely provoked from hyperthyroidism. 4. Elevated troponin. 5. Chronic left bundle branch block. 6. Chronic systolic heart failure. CONSULTANTS: None. HOSPITAL COURSE AND STAY BY PROBLEM: 1. Mechanical fall and scalp laceration: The patient was complaining of some problems with balance and headache. She has had 2 CT scans of her head that have been unremarkable. On day of discharge , her ability to ambulate has improved. 2. Atrial fibrillation with rapid ventricular response: The patient was found to have an iatrogeni nona suppressed TSH which could very well be contributing to her tachycardia. We have decreased he r Synthroid 75 mcg and decreased her Cytomel to 12.5 mcg. She will need further outpatient monitori ng with a repeat TSH in 4-6 weeks. The patient is reluctant to be on anticoagulation for her atrial fibrillation. She should further discuss anticoagulation or aspirin therapy with her primary care provider. PHYSICAL EXAMINATION: VITAL SIGNS: On day of discharge, blood pressure 132/87, pulse of 83, respir atory rate 12, O2 saturation 91% on room air, temperature afebrile. GENERAL: No acute distress. H EART: S1, S2. Irregularly irregular. LUNGS: Clear. ABDOMEN: Soft. EXTREMITIES: No edema. PERTINENT LABS AND STUDIES: Echocardiogram done 09/21/2016, refer to report. She does have an ejec tion fraction of 30%. DISCHARGE MEDICATIONS: Please refer to discharge medication reconciliation in [facility] for full det ails. Below is a preliminary list of medications that have been changed: Synthroid was decreased f rom 125 mcg to 75 mcg per day. Cytomel was decreased from 25 mcg to 12.5 mcg per day. She should c ontinue her home dose of benazepril 5 mg daily. DISCHARGE INSTRUCTIONS: The patient will be discharged from the hospital where she should follow up with her primary care provider in the next week for routine hospital followup. She should have a r epeat TSH done in 4-6 weeks. We should consider up titrating her DIANA inhibitor as tolerated with he r decreased ejection fraction of 30%. She should also have further discussions in regard to anticoa gulation with atrial fibrillation. /[id number]/MODL
--- NOTE | 2016-09-22 15:53 | PDIAF ---
- Diagnosis Diagnosis: fall Code Status: Full Code - Medication Management Discharge Medications: Medications to Continue on Transfer Gabapentin [Neurontin 300 MG (*)] 300 mg PO HS 12/07/15 [Last Taken 09/19/16] Omeprazole 40 mg PO HS 12/07/15 [Last Taken 09/19/16] Benazepril HCl 5 mg PO DAILY 09/20/16 [Last Taken 09/20/16] Herbals/Supplements -Info Only 1 ea PO DAILY 09/20/16 [Last Taken Unknown] Metoprolol Succinate Xr [Toprol Xl 25 mg (*)] 25 mg PO HS 09/20/16 [Last Taken 09/19/16] Metoprolol Succinate Xr [Toprol Xl 25 mg (*)] 50 mg PO DAILY 09/20/16 [Last Taken 09/20/16] Multivitamins [Multivitamin (*)] 1 each PO DAILY 09/20/16 [Last Taken 09/20/16] Acetaminophen [Tylenol 325mg (*)] 650 mg PO Q4HRS PRN #0 tab 09/22/16 [Last Taken Unknown] Levothyroxine [Synthroid 75 mcg (*)] 75 mcg PO DAILY AT 6AM #30 tab 09/22/16 [ Last Taken Unknown] Liothyronine Sodium [Cytomel 25 mcg (*)] 12.5 mcg PO DAILY #0 tab 09/22/16 [ Last Taken Unknown] Discharge Medications: Refer to the Discharge Home Medication list for PRN reason. - Orders Services needed: Home Care, Registered Nurse, Physical Therapy Home Care Face to Face: I certify that this patient was under my care and that I had the required [id number] encounter meeting the encounter requirements on the discharge day. My findings support the fact that the patient is homebound as defined in CMS Chapter 7 Medicare Benefits Manual 30.1.1, The condition of the patient is such that there exists a normal inability to leave home and consequently, leaving home would require a considerable and taxing effort. Diet Recommendation: no restrictions on diet Diet Texture: Regular Texture Diet - Follow Up Care Current Providers and Referrals: Patient,NotPresent [Unknown] - As per Instructions
[2016-09-22] MEDS: GABAPENTIN 300 MG CAP PO SCH (21:23)
[2016-09-22] MEDS: PANTOPRAZOLE SODIUM 40 MG TAB PO SCH (21:24)
[2016-09-22] MEDS: METOPROLOL SUCCINATE XR 25 MG TAB PO SCH (21:24)
[2016-09-23] MEDS: LEVOTHYROXINE 75 MCG TAB PO SCH (06:17)
[2016-09-23] MEDS: BENAZEPRIL HCL 10 MG TAB PO SCH (08:03)
[2016-09-23] MEDS: METOPROLOL SUCCINATE XR 50 MG TAB PO SCH (08:03)
[2016-09-23] MEDS: LIOTHYRONINE SODIUM 25 MCG TAB PO SCH (08:04)
[2016-09-23] MEDS: SENNOSIDES/DOCUSATE SODIUM TAB PO SCH ×2 (08:04→20:56)
[2016-09-23] MEDS: ENOXAPARIN 40 MG/0.4 ML SYR SC SCH (08:05)
[2016-09-23] MEDS: MULTIVITAMINS 1 EACH TAB PO SCH (08:05)
--- NOTE | 2016-09-23 12:54 | HOSPPROG ---
Hospitalist Progress Note Assessment/Plan: 81 y/o female presenting with fall found to have afib with rvr dc was planned for 09/22, but was held due to weakness #weakness likely multifactorial in the setting of iatrogenic hyperthyroidism/ poorly controlled afib with rvr/poor nutrition #afib with rvr now with improved rate control possibly exacerbated by iatrogenic hyperthyroidism #compensated systolic HF plan -pt to weak to dc home -control current rate controlling meds -thyroid replacement has been decreased -plan to dc to snf for rehab when bed available -no anticoagulation for afib (pt has refused) Subjective: still weak and unsteady on feet. denies room spinning vertigo. no chest pain or sob Objective: Vital Signs Temp Pulse Resp BP Pulse Ox 36.3 C 75 21 H 118/72 96 09/23/16 07:37 09/23/16 07:37 09/23/16 07:37 09/23/16 07:37 09/23/16 07:37 09/22/16 09/23/16 09/24/16 05:59 05:59 05:59 Intake Total 700 650 Output Total 1500 1500 Balance -800 -850 PT 15.1 SEC (12.0-15.0) H 09/20/16 12:25 INR 1.19 (0.83-1.16) H 09/20/16 12:25 - Physical Exam Constitutional: no apparent distress, appears nourished, not in pain Cardiovascular: no murmur, rub, or gallop, irregularly irregular, No JVD, No edema Respiratory: no respiratory distress, no rales or rhonchi, clear to auscultation , No rhonchi Gastrointestinal: normoactive bowel sounds, soft, non-tender abdomen, no palpable masses, No guarding, No rebound Neurologic: AAOx3, sensation intact bilaterally ICD10 Worksheet Patient Problems: Problems Problem Status Onset Fall Acute Head trauma Acute Rapid atrial fibrillation Acute Scalp laceration Acute Atrial fibrillation Acute Chronic Disease Mgmt/Transitional Care Acute Congestive heart failure Acute
[2016-09-23] MEDS ORDERED: LOPERAMIDE HCL 2 MG CAP PO PRN (17:29)
[2016-09-23] MEDS: METOPROLOL SUCCINATE XR 25 MG TAB PO SCH (20:50)
[2016-09-23] MEDS: GABAPENTIN 300 MG CAP PO SCH (20:51)
[2016-09-23] MEDS: PANTOPRAZOLE SODIUM 40 MG TAB PO SCH (20:51)
[2016-09-24] MEDS: LEVOTHYROXINE 75 MCG TAB PO SCH (06:01)
[2016-09-24 07:43] VITALS: BP 121/64; PULSE 84; RESP 18; TEMP 97.3; O2SAT 98
[2016-09-24] MEDS: ENOXAPARIN 40 MG/0.4 ML SYR SC SCH (08:45)
[2016-09-24] MEDS: LIOTHYRONINE SODIUM 25 MCG TAB PO SCH (08:46)
[2016-09-24] MEDS: SENNOSIDES/DOCUSATE SODIUM TAB PO SCH (08:46)
[2016-09-24] MEDS: MULTIVITAMINS 1 EACH TAB PO SCH (08:51)
[2016-09-24] MEDS: METOPROLOL SUCCINATE XR 50 MG TAB PO SCH (08:51)
[2016-09-24] MEDS: BENAZEPRIL HCL 10 MG TAB PO SCH (08:52)
--- NOTE | 2016-09-24 10:22 | GDS ---
[f rep st] DISCHARGE SUMMARY DISCHARGE DIAGNOSES: 1. Scalp laceration due to a ground level fall. 2. Exogenous hypothyroidism. 3. Atrial fibrillation with rapid ventricular response likely provoked from hyperthyroidism. 4. Elevated troponin. 5. Chronic left bundle branch block. 6. Chronic systolic congestive heart failure with ejection fraction of 30%. CONSULTANTS: None. HOSPITAL COURSE: Ground level fall with scalp laceration, found to be in atrial fibrillation with r apid ventricular response and likely iatrogenic hyperthyroidism. The patient presented to the [facility] on 09/20/2016. She continued to be weak, but was initially thought to be stable for discharge o n 09/22/2016. On the afternoon of 09/22, the patient almost fell again and was subsequently held in the hospital due to deconditioning and weakness and is ultimately being discharged today to a [facility] nursing facility for further rehabilitation. Please refer to the dictated Discharge Summary date d 09/22/2016, for full hospital details. PHYSICAL EXAMINATION: VITAL SIGNS: On day of discharge, blood pressure 121/64, pulse 84, respirato ry rate 18, O2 saturation 98% on 2 L, temperature afebrile. GENERAL: No acute distress. HEART: S 1, S2. LUNGS: Clear. ABDOMEN: Soft. EXTREMITIES: No edema. DISCHARGE MEDICATIONS: Please refer to Discharge Medication Reconciliation in [facility]. DISCHARGE INSTRUCTIONS: The patient will be transferred to detention facility for further adri abilitation. Once again, her Synthroid and Cytomel have been cut in half. She will need outpatient followup of her TSH in 4-6 weeks. She will also need her scalp vince removed in the next week. /[id number]/MODL
== END 2016-09-24 12:12 | DRG 605 ==
LOC: EDBD → EDUNIT# → F2W 15:45 → OBSVTOIN 09-21 11:01
PROVIDERS: ADMIT Internal Medicine; ATTEND Family Medicine
PROC: 0HQ0XZZ Repair Scalp Skin, External Approach (ICD-10-PCS; principal; 2016-09-21)
DX: S01.01XA Laceration without foreign body of scalp, initial encounter (principal); I11.9 Hypertensive heart disease without heart failure; I50.42 Chronic combined systolic (congestive) and diastolic (congestive) heart failure; I48.2 Chronic atrial fibrillation; K21.9 Gastro-esophageal reflux disease without esophagitis; I44.7 Left bundle-branch block, unspecified; E05.80 Other thyrotoxicosis without thyrotoxic crisis or storm; W01.198A Fall on same level from slipping, tripping and stumbling with subsequent striking against other object, initial encounter; Y92.513 Shop (commercial) as the place of occurrence of the external cause; Z95.3 Presence of xenogenic heart valve
CPT/HCPCS: 92523-GN; 96374; 97116-GP; 97162-GP; 97166-GO; 97530-GO; 97530-GP; 97535-GO; G0378; G8978-GP-CJ; G8979-GP-CI; G8987-GO-CK; G8988-GO-CI; G9168-GN-CJ; G9169-GN-CI; G9170-GN-CJ; J1650; J2405

== ENCOUNTER 2017-04-29 18:51 | Inpatient (IN) | payer OTHER ==
[2017-04-29 19:18] LABS: % IMMATURE GRANULYOCYTES 0.3 % (0.0-1.1); ABSOLUTE IMMATURE GRANULOCYTES 0.02 10^3/uL (0.00-0.10); ADD DIFF? NO; ADD MORPH? NO; ADD SCAN? NO; ATYPICAL LYMPHOCYTE FLAG 10 (0-99); FRAGMENT RBC FLAG 0 (0-99); HEMATOCRIT 35.9 % (38.0-47.0); LEFT SHIFT FLG 0 (0-99); LIPEMIA HEMOLYSIS FLAG 80 (0-99); MEAN CELL HEMOGLOBIN CONCENTR. 33.4 g/dL (32.4-36.7); MEAN CELL VOLUME 92.8 fL (81.5-99.8); MEAN PLATELET VOLUME 10.8 fL (8.7-11.7); PLATELET CLUMPS FLAG 40 (0-99); PLATELET COUNT 164 10^3/uL (150-400); RED BLOOD CELL COUNT 3.87 10^6/uL (4.18-5.33); RED CELL DISTRIBUTION WIDTH 13.2 % (11.5-15.2)
[2017-04-29 19:25] LABS: APTT 25.4 SEC (23.0-38.0); INR 1.18 (0.83-1.16); PROTIME(PATIENT) 15.2 SEC (12.0-15.0)
[2017-04-29 19:27] LABS: ANION GAP 13 mEq/L (8-16); CALCIUM 9.8 mg/dL (8.5-10.4); CARBON DIOXIDE 24 mEq/l (22-31); CHLORIDE 105 mEq/L (97-110); CREATININE 1.1 mg/dL (0.6-1.0); GLOMERULAR FILTRATION RATE 48; GLUCOSE 102 mg/dL (70-100); POTASSIUM 4.3 mEq/L (3.5-5.2); SODIUM 142 mEq/L (134-144)
[2017-04-29 19:39] LABS: TROPONIN I < 0.012 ng/mL (0.000-0.034)
[2017-04-29] MEDS ORDERED: ONDANSETRON 4 MG/2 ML VIAL IVP PRN (21:23)
[2017-04-29] MEDS ORDERED: ONDANSETRON DISINTEGRATING 4 MG TAB PO PRN (21:23)
[2017-04-29] MEDS ORDERED: NS 1,000 ML IV SCH (21:30)
--- NOTE | 2017-04-29 21:49 | EDPHY ---
H & P Stated Complaint: lightheaded, dizzy. Time Seen by Provider: 04/29/17 18:59 HPI/ROS: Chief complaint: Dizzy History of present illness: This is a 81-year-old female who is brought to the emergency department by EMS for evaluation of dizziness. Patient reports the onset of symptoms earlier this afternoon. She describes the dizziness as a lightheadedness. She has had associated nausea that has been coming in waves without vomiting. No report of vertiginous symptoms. She states she has also had intermittent chest discomfort over the last 2 days. The last episode was yesterday. She describes a central chest discomfort. She denies precipitating factors. She denies alleviating factors. She denies other associated signs or symptoms including no fevers, no cold symptoms, no changes in bowel or bladder function, no headache. Review of systems: A 10 point review of systems was obtained and other than described above was negative - Personal History Current Tetanus/Diphtheria Vaccine: Yes Current Tetanus Diphtheria and Acellular Pertussis (TDAP): Yes Tetanus Vaccine Date: within 10 years - Medical/Surgical History Hx Asthma: No Hx Chronic Respiratory Disease: No Hx Diabetes: No Hx Cardiac Disease: Yes Hx Renal Disease: No Hx Cirrhosis: No Hx Alcoholism: No Hx HIV/AIDS: No Hx Splenectomy or Spleen Trauma: No Other PMH: pmh:HTN, THYROID CA, AFIB, BALANCE ISSUES, GERD, SCOLIOSIS, CHRONIC, BACK PAIN, chronis sinus infections. psH:HARDWARE IN LEFT SHOULDER, TONSELS AND ADNOIDS REMOVED. MVR/Tricupid valve replacement [facility] in [place] 2014 - Social History Smoking Status: Never smoked - Physical Exam Exam: General Appearance: Alert, nontoxic but unwell appearing. Eyes: Pupils equal and round no pallor or injection. ENT, Mouth: Mucous membranes moist. Respiratory: There are no retractions, lungs are clear to auscultation. Cardiovascular: Irregular irregular rhythm. Gastrointestinal: Abdomen is soft and non tender, no masses, bowel sounds normal. Neurological: Alert and oriented x4. Cranial nerves 2-12 grossly intact. Strength and sensation intact and symmetrical. No pronator drift. Patient is able to stand and balance well. No meningismus. Skin: Warm and dry, no rashes. Musculoskeletal: Neck is supple non tender. Extremities are symmetrical, full range of motion. Psychiatric: Patient is oriented X 3, there is no agitation. Constitutional: Initial Vital Signs Temperature (C) 36.6 C 04/29/17 19:00 Heart Rate 101 H 04/29/17 19:00 Respiratory Rate 18 04/29/17 19:00 Blood Pressure 130/81 H 04/29/17 19:00 O2 Sat (%) 95 04/29/17 19:00 O2 Delivery Mode Room Air Allergies/Adverse Reactions: benzonatate [From [email or web address] Perlnithin] Allergy (Mild, Verified 06/13/16 13:52) Rash soy Allergy (Verified 06/13/16 13:52) Home Medications: Medication Instructions Recorded Gabapentin [Neurontin 300 MG (*)] 300 mg PO HS 12/07/15 Omeprazole 40 mg PO HS 12/07/15 Benazepril HCl 5 mg PO DAILY 09/20/16 Herbals/Supplements -Info Only 1 ea PO DAILY 09/20/16 Metoprolol Succinate Xr [Toprol Xl 25 mg PO HS 09/20/16 25 mg (*)] Metoprolol Succinate Xr [Toprol Xl 50 mg PO DAILY 09/20/16 25 mg (*)] Multivitamins [Multivitamin (*)] 1 each PO DAILY 09/20/16 Acetaminophen [Tylenol 325mg (*)] 650 mg PO Q4HRS PRN #0 tab 09/22/16 Levothyroxine [Synthroid 75 mcg 75 mcg PO DAILY AT 6AM #30 tab 09/22/16 (*)] Liothyronine Sodium [Cytomel 25 12.5 mcg PO DAILY #0 tab 09/22/16 mcg (*)] Cytomel 04/29/17 Medical Decision Making - Diagnostics Imaging Results: Imaging Impressions Chest X-Ray 04/29/17 19:08 Impression: Nothing acute identified. Cardiomegaly without decompensation. Imaging: I viewed and interpreted images myself ED Course/Re-evaluation: Patient is discussed with my secondary supervising physician Dr. Herson Godfrey. Patient presents to the emergency department for evaluation of dizziness described as a lightheadedness with nausea, no vomiting and intermittent chest pain for the last 2 days. On presentation although she is nontoxic she is unwell appearing. Physical exam is benign. Blood studies largely unremarkable, elevated BNP but this is been elevated in the past and no evidence of overload at this time. CT scan of the head and urinalysis pending at time of dictation. Given ongoing symptoms without definitive diagnosis I believe it most appropriate to admit her for further evaluation and care. She will be admitted to the hospitalist service, Dr. Keven Atkinson. The plan has been discussed with the patient who voiced understanding and agreement with it. Differential Diagnosis: Included but not limited to a a fib complications including RVR and embolic disease, ACS, heart failure, anemia, electrolyte disturbances, infections including urinary tract infection and pneumonia - Data Points Laboratory Results: Laboratory Results 04/29/17 19:00 04/29/17 19:00 04/29/17 04/29/17 04/29/17 19:00 19:00 19:00 WBC RBC Hgb Hct MCV MCH MCHC RDW Plt Count MPV Neut % (Auto) Lymph % (Auto) [place] % (Auto) Eos % (Auto) Baso % (Auto) Nucleat RBC Rel Count Absolute Neuts (auto) Absolute Lymphs (auto) Absolute Monos (auto) Absolute Eos (auto) Absolute Basos (auto) Absolute Nucleated RBC Immature Gran % Immature Gran # PT 15.2 SEC H SEC (12.0-15.0) INR 1.18 H (0.83-1.16) APTT 25.4 SEC SEC (23.0-38.0) D-Dimer Pending Sodium 142 mEq/L mEq/L (134-144) Potassium 4.3 mEq/L mEq/L (3.5-5.2) Chloride 105 mEq/L mEq/L (97-110) Carbon Dioxide 24 mEq/l mEq/l (22-31) Anion Gap 13 mEq/L mEq/L (8-16) BUN 24 mg/dL H mg/dL (7-23) Creatinine 1.1 mg/dL H mg/dL (0.6-1.0) Estimated GFR 48 Glucose 102 mg/dL H mg/dL (70-100) Calcium 9.8 mg/dL mg/dL (8.5-10.4) Troponin I < 0.012 ng/mL ng/mL (0.000-0.034) NT-Pro-B Natriuret Pep 4830 pg/mL H pg/mL (0-450) 04/29/17 19:00 WBC 6.81 10^3/uL 10^3/uL (3.80-9.50) RBC 3.87 10^6/uL L 10^6/uL (4.18-5.33) Hgb 12.0 g/dL L g/dL (12.6-16.3) Hct 35.9 % L % (38.0-47.0) MCV 92.8 fL fL (81.5-99.8) MCH 31.0 pg pg (27.9-34.1) MCHC 33.4 g/dL g/dL (32.4-36.7) RDW 13.2 % % (11.5-15.2) Plt Count 164 10^3/uL 10^3/uL (150-400) MPV 10.8 fL fL (8.7-11.7) Neut % (Auto) 45.7 % % (39.3-74.2) Lymph % (Auto) 35.2 % % (15.0-45.0) [place] % (Auto) 10.6 % % (4.5-13.0) Eos % (Auto) 7.2 % % (0.6-7.6) Baso % (Auto) 1.0 % % (0.3-1.7) Nucleat RBC Rel Count 0.0 % % (0.0-0.2) Absolute Neuts (auto) 3.11 10^3/uL 10^3/uL (1.70-6.50) Absolute Lymphs (auto) 2.40 10^3/uL 10^3/uL (1.00-3.00) Absolute Monos (auto) 0.72 10^3/uL 10^3/uL (0.30-0.80) Absolute Eos (auto) 0.49 10^3/uL H 10^3/uL (0.03-0.40) Absolute Basos (auto) 0.07 10^3/uL 10^3/uL (0.02-0.10) Absolute Nucleated RBC 0.00 10^3/uL 10^3/uL (0-0.01) Immature Gran % 0.3 % % (0.0-1.1) Immature Gran # 0.02 10^3/uL 10^3/uL (0.00-0.10) PT INR APTT D-Dimer Sodium Potassium Chloride Carbon Dioxide Anion Gap BUN Creatinine Estimated GFR Glucose Calcium Troponin I NT-Pro-B Natriuret Pep Departure - Departure Disposition: [facility] Inpatient Acute Clinical Impression: Weakness Condition: Fair
--- NOTE | 2017-04-29 22:28 | GHP ---
[f rep st] HISTORY AND PHYSICAL DATE OF ADMISSION: 04/29/2017 CHIEF COMPLAINT: Dizziness. HISTORY OF PRESENT ILLNESS: This is a 81-year-old female with significant cardiac disease who presen ts with dizziness. This started acutely at 5:30. She had a little bit of chest pain, which was flee ting yesterday, but she has not had any today. She says that she has been eating and drinking normal ly. She has had no medication changes recently. She has been urinating normally. The dizziness is described as "classic dizziness." It is not vertiginous in nature, though she feels overall quite we ak as though she may collapse. She does not feel as though she is about to lose consciousness, howev er. She has not had any diarrhea recently. PAST MEDICAL/SURGICAL HISTORY: 1. Atrial fibrillation, status post left atrial appendage ligation, not on anticoagulation. 2. CHF with an EF of 30%. 3. 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 4. Coronary artery disease, status post stent in 2010. 5. GERD. 6. Hypertension. 7. TUSHAR. 8. Osteoporosis. 9. Anemia. 10. Hypothyroid, status post thyroidectomy for thyroid cancer. MEDICATIONS: Please see medication reconciliation. ALLERGIES: Benzonatate, soy. FAMILY HISTORY: Reviewed and noncontributory. SOCIAL HISTORY: She does not drink or smoke. REVIEW OF SYSTEMS: A 10-point review of systems is conducted and is negative except per HPI. PHYSICAL EXAM: VITAL SIGNS: Blood pressure 114/87, heart rate 101, respiration rate 19 saturating 9 4% on room air, temperature 36.6. GENERAL: The patient is a pleasant female who looks somewhat unco mfortable, in no acute distress. HEENT: Normocephalic, atraumatic. Her mucous membranes are dry. CARDIOVASCULAR: Irregularly irregular. She is tachycardic. I do not appreciate any murmurs, rubs, or gallops. PULMONARY: Lungs clear to auscultation bilaterally. ABDOMEN: Soft, nontender, nondist ended. SKIN: Decreased skin turgor. EXTREMITIES: No lower extremity edema. NEUROLOGIC: Alert an d oriented x3. She has mildly decreased strength on the right side compared to the left. She has se nsation to light touch intact bilaterally. Cranial nerves 2-12 are intact. PSYCHIATRIC: Shows norm al mood and affect. LABS: Hemoglobin is 12, INR is 1.18, creatinine is 1.1. BNP is 4,830. Troponin is undetectable. DATA: 1. I discussed this with Donald Bro in the ED. 2. I personally viewed and interpreted her chest x-ray. This shows cardiomegaly. I do not apprecia te any heart failure. 3. EKG shows atrial fibrillation. There is 1 PVC. She has a nonspecific widened QRS complex. She has slow R-wave progression. This is not changed from her last EKG, which I also viewed. IMPRESSION AND PLAN: 1. Dizziness: Her cardiac history is difficult to ignore, although I am not finding anything clearl y cardiac. She is tachycardic, in atrial fibrillation with rapid ventricular response. She has slig htly decreased strength on the right side compared to the left. We will check CT scan of the head. Would consider pulmonary embolus, though I think this is less likely. I will check a D-dimer. If it is markedly elevated, we will get a CT angio. She appears actually dry on exam. I will give her 50 0 cc of fluid very slowly; I have warned her to tell us immediately if she starts to feel short of br eath. We will place her on telemetry. Consider cardiology consult. 2. Atrial fibrillation with rapid ventricular response: Not anticoagulated given left atrial append age ligation. Continue her metoprolol. 3. Congestive heart failure with an ejection fraction of 30%: She is not exactly sure what medicati ons she is, though she does remember Entresto. We will continue her cardiac medications after they a re reconciled by pharmacy. 4. Coronary artery disease, status post stent in 2010: We will continue cardiac medications when th ey are reconciled. 5. Mild acute kidney injury: May also be a sign of dehydration. We will recheck this after IV flui ds. 6. Gastroesophageal reflux disease. 7. Obstructive sleep apnea. 8. Osteoporosis. 9. Hypothyroid: Continue thyroid replacement. 10. Code status: She would like to be full code full tube. 11. Venous thromboembolism risk is moderate. I will give her Lovenox. /[id number]/MODL
[2017-04-29] MEDS: ACETAMINOPHEN 325 MG TAB PO PRN (22:39)
[2017-04-29 22:52] LABS: COLOR YELLOW; LEUKOCYTE ESTERASE,URINE NEGATIVE (NEGATIVE); NITRITE,URINE NEGATIVE (NEGATIVE)
[2017-04-29 22:55] LABS: BACTERIA TRACE /hpf (NONE SEEN); MUCUS TRACE /lpf (NONE-1+)
[2017-04-29] MEDS ORDERED: LOPERAMIDE HCL 2 MG CAP PO PRN (23:48)
[2017-04-30] MEDS ORDERED: SACUBITRIL/VALSARTAN 24/26MG 1 EA TAB PO SCH ×2 (00:15→21:00)
[2017-04-30] MEDS ORDERED: METOPROLOL SUCCINATE XR 25 MG TAB PO SCH ×3 (00:15→21:00)
[2017-04-30] MEDS ORDERED: PANTOPRAZOLE SODIUM 40 MG TAB PO SCH ×3 (00:15→21:00)
[2017-04-30] MEDS ORDERED: GABAPENTIN 300 MG CAP PO SCH ×3 (00:15→21:00)
[2017-04-30 01:16] LABS: ALANINE AMINOTRANSFERASE 21 IU/L (9-52); ALBUMIN 3.1 g/dL (3.5-5.0); ALKALINE PHOSPHATASE 70 IU/L (38-126); ANION GAP 11 mEq/L (8-16); ASPARTATE AMINOTRANSFERASE 16 IU/L (14-46); BILIRUBIN,TOTAL 0.3 mg/dL (0.1-1.4); CALCIUM 9.1 mg/dL (8.5-10.4); CARBON DIOXIDE 23 mEq/l (22-31); CHLORIDE 108 mEq/L (97-110); CREATININE 1.1 mg/dL (0.6-1.0); GLOMERULAR FILTRATION RATE 48; GLUCOSE 110 mg/dL (70-100); POTASSIUM 4.6 mEq/L (3.5-5.2); SODIUM 142 mEq/L (134-144); TOTAL PROTEIN 5.9 g/dL (6.3-8.2)
[2017-04-30 01:36] LABS: TROPONIN I < 0.012 ng/mL (0.000-0.034)
--- NOTE | 2017-04-30 02:52 | HOSPPROG ---
Hospitalist Progress Note Assessment/Plan: Hospitalist Night Float Paged by RN. noting slightly increased d-dimer. Reviewed H&P. Patient admitted with dizziness, afib rvr. lower suspicion for PE. d-dimer only minimally elevated 0.7 (ref range 0-0.5) and patient without tachypnea/ tachycardia or reports of dyspnea. CT head neg for acute findings. RN reports patient has been sleeping comfortably. Will continue to monitor clinically. add on TFTs to AM labs. reconsider CTA if patient develops any respiratory si/sx of PE. Objective: Vital Signs Temp Pulse Resp BP Pulse Ox 36.5 C 67 16 118/62 98 04/30/17 00:42 04/30/17 02:00 04/30/17 02:00 04/30/17 02:00 04/30/17 02:00 Laboratory Results 04/30/17 00:30 PT 15.2 SEC (12.0-15.0) H 04/29/17 19:00 INR 1.18 (0.83-1.16) H 04/29/17 19:00 ICD10 Worksheet Patient Problems: Problems Problem Status Onset Weakness Acute Atrial fibrillation Acute Chronic Disease Mgmt/Transitional Care Acute Congestive heart failure Acute Fall Acute Head trauma Acute Rapid atrial fibrillation Acute Scalp laceration Acute
[2017-04-30 05:59] LABS: % IMMATURE GRANULYOCYTES 0.2 % (0.0-1.1); ABSOLUTE IMMATURE GRANULOCYTES 0.01 10^3/uL (0.00-0.10); ADD DIFF? NO; ADD MORPH? NO; ADD SCAN? NO; ATYPICAL LYMPHOCYTE FLAG 10 (0-99); FRAGMENT RBC FLAG 0 (0-99); HEMATOCRIT 30.9 % (38.0-47.0); HEMOGLOBIN 10.4 g/dL (12.6-16.3); LEFT SHIFT FLG 0 (0-99); LIPEMIA HEMOLYSIS FLAG 80 (0-99); MEAN CELL HEMOGLOBIN CONCENTR. 33.7 g/dL (32.4-36.7); MEAN PLATELET VOLUME 10.5 fL (8.7-11.7); PLATELET CLUMPS FLAG 0 (0-99); PLATELET COUNT 148 10^3/uL (150-400); RED BLOOD CELL COUNT 3.36 10^6/uL (4.18-5.33)
[2017-04-30 06:43] LABS: T3 (TRIIODOTHYRONINE) TOTAL 1.11 ng/mL (0.970-1.690)
[2017-04-30] MEDS: LIOTHYRONINE SODIUM 25 MCG TAB PO SCH (06:44)
[2017-04-30] MEDS: LEVOTHYROXINE 125 MCG TAB PO SCH (06:44)
--- NOTE | 2017-04-30 09:31 | ECHO ---
[email or web address] [address] [address] Main: [phone] Fax: Transthoracic Echocardiogram Name: TRE DURAN MR#: [id number] Study Date: 04/30/2017 Study Time: 07:10 AM Date of : 1935 Age: 81 year(s) Height: 165.1 cm (65 in.) Weight: 65.77 kg (145 lb.) BSA: 1.73 m2 Gender: Female Examination: Echo Indication: Dizziness Image Quality: Contrast: Requested by: Keven Atkinson BP: 129 mmHg/65 mmHg Heart Rate: Rhythm: Indication: Dizziness Procedure Staff Assistant Cross Country Coach: Zabrina Physician: Chucho Koch Requesting Provider: Assistant Cross Country Coach: Amanda Melo Reading Physician: Requesting Provider: Conclusions: 1)Atrial fibrillation 2)Moderate to severely reduced LV systolic function with a LVEF of 31% and focal septal hypokinesis consistent with previous cardiac surgery. 3)Miild LV enlargement 4)Normal RV size and RVEF. 5)Moderate to severe bi-atrial enlargement. 6)Aortic valve sclerosis without . Mild AI noted. 7)Mitral valve s/p annular ring. Moderate MR noted with no MS. 8)Trivial TR noted. 9)Moderately enlarged ascending thoracic aorta (4.0cm). Measurements: Chambers Valvular Assessment AV/MV Valvular Assessment TV/PV Normal Normal Normal Name Value Range Name Value Range Name Value Range Ao Princess (MM): 4.0 cm (2.2 cm-3.7 AV Vmax: 1.29 m/s (1 m/s-1.7 PV Vmax: 0.69 m/s (0.6 m/s-0.9 cm) m/s) m/s) IVSd (2D): 0.7 cm (0.6 cm-1.1 AV maxP mmHg ( - ) PV PGmax: 2 mmHg ( - ) cm) AV meanP mmHg ( - ) LVDd (2D): 5.8 cm (3.9 cm-5.3 MV E Vmax: 1.14 m/s ( - ) cm) MV A Vmax: 0.21 m/s ( - ) LVDs (2D): 5.1 cm (2.1 cm-4 MV E/A: 5.43 ( - ) cm) LVPWd (2D): 0.9 cm ( - ) LVOTd 2.5 cm 2.5 cm mm LVEF (MOD4): 31 % (>=55 %) Patient: TRE DURAN Study Date: 04/30/2017 Page 1 of 2 07:10 AM EF Range: 30-35 % Continued Measurements: Chambers Valvular Assessment AV/MV Name Value Name Value LADs Lon.2 cm MV E/E' Septal: 27.20 LA Area: 29.5 cm2 MV E/E' Lateral: 24.90 Findings: Left Ventricle: Mildly dilated left ventricle. The ejection fraction is estimated to be 30-35 %. Right Ventricle: Normal size right ventricle. Left Atrium: The left atrium is moderately to severely dilated. Right Atrium: The right atrium is moderately to severely dilated. Mitral Valve: Moderate mitral valve regurgitation is present. An annuloplasty ring is noted in the mitral valve position. Aortic Valve: The aortic valve is tri-leaflet. Mild aortic valve regurgitation is present. Tricuspid Valve: There is a tricuspid valve ring. Pulmonic Valve: The pulmonic valve is normal in appearance. Mild pulmonic valve regurgitation is noted. Pericardium: No pericardial effusion. Exam Comments: (No Signature Object) Patient: TRE DURAN Study Date: 04/30/2017 Page 2 of 2 07:10 AM [id number]
[2017-04-30] MEDS: METOPROLOL SUCCINATE XR 50 MG TAB PO SCH (10:05)
[2017-04-30] MEDS: ENOXAPARIN 40 MG/0.4 ML SYR SC SCH (10:06)
[2017-04-30] MEDS: SACUBITRIL/VALSARTAN 24/26MG 1 EA TAB PO SCH ×2 (11:28→21:33)
[2017-04-30] MEDS: ACETAMINOPHEN 325 MG TAB PO PRN (12:37)
--- NOTE | 2017-04-30 12:40 | GCON ---
[f rep st] CONSULTATION DATE OF CONSULTATION: 04/30/2017 HISTORY OF PRESENT ILLNESS: This is a 81-year-old female with a past medical history of congestive heart failure, cardiomyopathy, EF of 30%, mitral valve repair and tricuspid valve replacement in 2014, coronary artery disease, status post PCI in 2010, left atrial appendage closure in 2014, permanent atrial fibrillation, [id number] residual MR, GERD, hypertension, obstructive sleep apnea, osteoporosis, and anemia, who was doing well up until yesterday morning when gradually, she started feeling poorly, but at 5:30, she started feeling very dizzy with minimal chest pain. She called her son, who agreed to come and take her to the emergency room. However, she did not feel like she could wait for those 30 minutes and hence, she called 911. She mentions that in addition to the dizziness, she was feeling extremely poorly and was having bouts of nausea. No vomiting noted. No fall noted. No syncope, but she was presyncopal at that point in time. Overall, she was feeling extremely weak and tired. She has not been in poor health. No associated fever or chills. No recent diarrhea. No recent vomiting. No recent changes in medication. No recent changes in the p.o. intake. PAST MEDICAL HISTORY: 1. Permanent atrial fibrillation, status post PAF, 2. Cardiomyopathy, with EF of 30%. The patient has refused ICD in the past and continues to do so. 3. MVR and TVR in 2014. Residual [id number] MR 4. Coronary artery disease, status post PCI. 5. GERD. 6. Hypertension. 7. Obstructive sleep apnea. 8. Osteoporosis. 9. Anemia. 10. Hypothyroidism. ALLERGIES: Benzonatate, soy, Tessalon, antitussives. MEDICATIONS: As per the outpatient note include Entresto, iron sulfate, gabapentin, levothyroxine, multivitamin, omeprazole, and Toprol-XL. FAMILY HISTORY: Noncontributory. SOCIAL HISTORY: Nonsmoker. PHYSICAL EXAMINATION: GENERAL: Normal body habitus. Alert, oriented, in no acute distress. HEENT: Pupils equally reacting to light and accommodating. Oral mucosa normal, without pallor or cyanosis. NECK: No JVD. No thyromegaly. No lymphadenopathy. CHEST: Good air entry. Bilaterally equal. No rales, rhonchi, or rub. CARDIOVASCULAR: S1, S2. Irregular. Systolic ejection murmur noted. Normal apical impulse. Carotid arteries are normal. Femoral pulses normal bilaterally. ABDOMEN: Nontender. No rigidity. No guarding. No hepatosplenomegaly. NEUROLOGIC: Grossly intact. Attention normal. Concentration abilities normal. Normal mood. Affect appropriate. LABORATORY DATA: Evaluated. Hemoglobin is 10.4, down from baseline of 12. Creatinine 1.1. Albumin 3.1. Echocardiogram shows moderate to severely reduced LV systolic function. EF of 31%. Focal septal hypokinesis consistent with previous cardiac surgery. Mild LV enlargement. Kbfihaty-[id number] biatrial enlargement. Mild AI. Moderate MR. Moderately enlarged ascending thoracic aneurysm. No significant changes from the previous echos. IMPRESSION AND PLAN: 1. This is a 81-year-old female with known cardiomyopathy, who comes in with an unusual episode of dizziness, along with presyncope associated with nausea. The patient mentions that these symptoms lasted until she was in the emergency room. In the emergency room, no tachycardia was noted. In a patient with cardiomyopathy, VT is always a concern, especially with someone who has had left bundle branch block. However, the patient continued to have these symptoms when EMS got there and also when she was in the emergency room. She mentions that these symptoms gradually resolved. Hence, this is atypical of ventricular tachycardia presentation. Other concerns could be atrial fibrillation with RVR. However, the patient has permanent atrial fibrillation and hence, any rapid ventricular response would be anhtony to sinus tachycardia and hence, would be secondary to some other systemic causes. Other etiologies include hypotension, which the patient has had in the past, though no significant hypotension was noted when she came to the emergency room. However , she has had hypotension in the past, and that could be a concern. The patient was given IV fluids in the ER and mentions that she has improved. From the cardiac standpoint at the current point in time, for her atrial fibrillation, rate control continues to be recommended. Furthermore, the patient is a candidate for an ICD for primary prevention. However, she has resisted up until now and continues to resist even as of today. No other cardiac changes are noted on the echocardiogram and hence, no further recommendations are made. Her blood pressure continues to be stable. 2. Moderate mitral regurgitation. Continue medical management. 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 /[id number]/MODL MTDD
--- NOTE | 2017-04-30 12:59 | HOSPPROG ---
Hospitalist Progress Note Assessment/Plan: Dizziness - unclear etiology, ?cardiac arrythmia such a a fib with RVR or VT with low EF and cardiomyopathy. She declines AICD per cards note. She is not orthostatic. This does not sound like vertigo thus doubt cva. -cont telemetry monitoring -rate control a fib -PT/OT evals -consider cardiac event monitor as outpt if no etiology identified A fib s/p JON ligation - pt declines anticoagulation -cont rate control with BB HF with EF 30% - no e/o volume overload. -cont outpt meds CAD s/p stent 2010 - stable, chest pain free Mod MR - cards following Full code DVT PPLX - Dispo - change to inpt for ongoing evaluation of dizziness and possible cardiac symptoms Subjective: Pt feels better. Minimal dizziness symptoms, mostly improved. She has no associated heart palpitations, CP, SOB, nausea or diaphoresis. No URI symptoms or other viral symptoms. No fevers. She thinks she was dehydrated. Objective: Vital Signs Temp Pulse Resp BP Pulse Ox 36.4 C 85 14 127/69 H 95 04/30/17 11:56 04/30/17 11:56 04/30/17 11:56 04/30/17 11:56 04/30/17 11:56 Laboratory Results 04/30/17 05:45 04/30/17 00:30 04/29/17 04/30/17 05/01/17 05:59 05:59 05:59 Intake Total 950 Output Total 1150 Balance -200 PT 15.2 SEC (12.0-15.0) H 04/29/17 19:00 INR 1.18 (0.83-1.16) H 04/29/17 19:00 - Physical Exam Constitutional: no apparent distress Eyes: PERRL Ears, Nose, Mouth, Throat: moist mucous membranes Cardiovascular: regular rate and rhythym, systolic murmur Respiratory: no respiratory distress, clear to auscultation Gastrointestinal: normoactive bowel sounds, soft, non-tender abdomen Skin: warm Musculoskeletal: full muscle strength Neurologic: AAOx3 Psychiatric: interacting appropriately ICD10 Worksheet Patient Problems: Problems Problem Status Onset Weakness Acute Atrial fibrillation Acute Chronic Disease Mgmt/Transitional Care Acute Congestive heart failure Acute Fall Acute Head trauma Acute Rapid atrial fibrillation Acute Scalp laceration Acute
--- NOTE | 2017-04-30 13:30 | PDMN ---
Medical Necessity Medical necessity: C/M review: est. > 2 MN LOS for eval and TX of acute and persistent dizziness of unclear etiology, questionable cardiac arrhythmia, possible cardiac symptoms requiring ongoing cardiac monitoring, acute inpt PT/OT , comorbid atrial fibrillation S/P JON ligation, patient declines anticoagulation and AICD, heart failure with EF 30%, CAD S/P stent 2010, moderate mitral regurgitation per 04/30/2017 Hospitalist progress note.
--- NOTE | 2017-04-30 15:53 | CPEKG ---
Heart Rate: 94 RR Interval: 638 QRSD Interval: 130 QT Interval: 392 QTC Interval: 491 QRS Blanchard: -57 T Wave Blanchard: 80 EKG Severity - ABNORMAL ECG - EKG Impression: ATRIAL FIBRILLATION EKG Impression: NONSPECIFIC IVCD WITH LAD EKG Impression: LEFT VENTRICULAR HYPERTROPHY EKG Impression: ANTERIOR Q WAVES, POSSIBLY DUE TO LVH Electronically Signed By: Gama Aquino 01-May-2017 21:37:15
[2017-04-30] MEDS ORDERED: METOPROLOL SUCCINATE XR 50 MG TAB PO SCH (21:00)
[2017-05-01 04:23] LABS: ANION GAP 7 mEq/L (8-16); CALCIUM 8.9 mg/dL (8.5-10.4); CARBON DIOXIDE 28 mEq/l (22-31); CHLORIDE 106 mEq/L (97-110); CREATININE 1.1 mg/dL (0.6-1.0); GLOMERULAR FILTRATION RATE 48; GLUCOSE 92 mg/dL (70-100); POTASSIUM 4.6 mEq/L (3.5-5.2); SODIUM 141 mEq/L (134-144)
[2017-05-01] MEDS: LIOTHYRONINE SODIUM 25 MCG TAB PO SCH (06:38)
[2017-05-01] MEDS: LEVOTHYROXINE 125 MCG TAB PO SCH (06:38)
[2017-05-01] MEDS: SACUBITRIL/VALSARTAN 24/26MG 1 EA TAB PO SCH (10:10)
[2017-05-01] MEDS: METOPROLOL SUCCINATE XR 50 MG TAB PO SCH (10:11)
[2017-05-01] MEDS: ENOXAPARIN 40 MG/0.4 ML SYR SC SCH (10:53)
[2017-05-01 11:40] VITALS: BP 134/64; PULSE 87; RESP 14; TEMP 97.8; O2SAT 93
--- NOTE | 2017-05-01 13:37 | ASMTCMCOM ---
CM Note CM Note Notes: 05/01/2017 Case Management Note Reviewed chart, spoke w/RN. Met w/pt PT recommending d/c home. There are no case management d/c needs identified. Pt has support from son Thierno [phone]. She is still driving and independent with her ADL's. She has hired out her yard care. She has her cell phone with her at all times and has a life alert but has no activated it yet. Case Management d/c poc: Home with family support when medically stable with follow up as directed. Case Management available if needs change. Date Signed: 05/01/2017 01:37 PM Electronically Signed By:Yandy Brown RN
--- NOTE | 2017-05-01 17:27 | ASDISCHSUM ---
Discharge Information Plan Status:Home with No Needs Medically Cleared to Leave:04/30/2017 Discharge Date:05/01/2017 03:03 PM CM D/C Disposition:Home, Routine, Self-Care ADT D/C Disposition:Home, Routine, Self-Care Projected Discharge Date:05/01/2017 03:03 PM Transportation at D/C:Family Discharge Delay Reason: Follow-Up Date:05/01/2017 03:03 PM Discharge Slot: Final Diagnosis: Placement Information Patient Contact Information Contact Name:SAMUEL Relationship:Son Address:[address] Work Phone: City:[place] Alternate Phone: [facility]/Zip Code:[place] [address] Email: Financial Information Financial Class: Primary Plan Desc:MEDICARE INPATIENT Primary Plan Number:[id number] Secondary Plan Desc:[employer] Secondary Plan Number:[id number] Assessment Information [facility] CM Progress Note CM Note CM Note Notes: 05/01/2017 Case Management Note Reviewed chart, spoke w/RN. Met w/pt PT recommending d/c home. There are no case management d/c needs identified. Pt has support from son Thierno [phone]. She is still driving and independent with her ADL's. She has hired out her yard care. She has her cell phone with her at all times and has a life alert but has no activated it yet. Case Management d/c poc: Home with family support when medically stable with follow up as directed. Case Management available if needs change. Date Signed: 05/01/2017 01:37 PM Electronically Signed By:Yandy Brown RN Intervention Information
--- NOTE | 2017-05-01 21:22 | GDS ---
[f rep st] DISCHARGE SUMMARY DISCHARGE DIAGNOSES: 1. Presyncope, resolved. 2. Atrial fibrillation, status post left atrial appendage ligation. 3. Chronic systolic heart failure with an ejection fraction of 30%. 4. Coronary artery disease, status post stenting in 2010. 5. Moderate mitral regurgitation. IMAGING STUDIES/PROCEDURES: 1. Head CT April 29, 2017, showed no acute intracranial abnormalities. 2. Echocardiogram April 30, 2017, showed a rhythm of atrial fibrillation with moderate to severel y reduced left ventricular systolic function with an EF of 31% and focal septal hypokinesis, moderate to severe biatrial enlargement, and moderate mitral regurgitation with a moderately enlarged ascendi ng thoracic aorta of 4 cm. CONSULTANTS: Daryl Rios. HISTORY: For details, please see history and physical dated April 29, 2017. In brief, the patiekaterina tee is a 81-year-old female with history of known coronary disease and atrial fibrillation, as well as systolic heart failure and mitral regurgitation, who presents to the Emergency Department with dizzin ess. She describes this as a lightheaded feeling and denied vertigo or disequilibrium. She had no c hest pain, shortness of breath, or syncope. She is admitted to the hospital for further evaluation. HOSPITAL COURSE: The patient admitted to the cardiac telemetry unit. It is possible she had an epis ode of rapid ventricular response with her atrial fibrillation. Also consider tachycardia or ventric ular fibrillation given her low ejection fraction. Cardiology consult was obtained. She has been of fered AICD in the past and has declined. She continues to decline defibrillator placement, acknowled ging her risk of malignant arrhythmia with her low EF. A D-dimer was performed and was not significa ntly elevated. Echocardiogram showed no significant changes in her cardiac abnormalities. A carotid artery Doppler study was negative for any hemodynamically significant lesions. Orthostatics were ne gative. The patient had untoward events on telemetry. Her symptoms have completely resolved, and thea mckenzie wishes to discharge home. Again, she has declined a defibrillator, which was offered to her this h ospitalization. I advised her to follow up with her primary diagnostic tech, Dr. Shayne Cuevas, to discu ss possible long-term cardiac event monitoring. She is reluctant to do so, but understands our recom mendation. DISPOSITION: The patient is discharged home in stable condition. FOLLOWUP: 1. Dr. Elder Rodriguez, primary care. 2. Dr. Shayne Cuevas, [facility]. DISCHARGE MEDICATIONS: Please see [facility] for completed outpatient medication list. The patient wi ll continue all outpatient medications as previously prescribed. There are no new medications on dis charge. /[id number]/MODL
== END 2017-05-01 15:03 | disposition home or self-care (01) | DRG 149 ==
LOC: EDUNIT# → INTOOBSV 20:50 → F2W 04-30 08:49 → OBSVTOIN 04-30 13:01
PROVIDERS: ADMIT Student in an Organized Health Care Education/Training Program; ATTEND Student in an Organized Health Care Education/Training Program
DX: R42 Dizziness and giddiness (principal); I50.22 Chronic systolic (congestive) heart failure; I48.91 Unspecified atrial fibrillation; I25.10 Atherosclerotic heart disease of native coronary artery without angina pectoris; I34.0 Nonrheumatic mitral (valve) insufficiency; I11.0 Hypertensive heart disease with heart failure; G47.33 Obstructive sleep apnea (adult) (pediatric); E03.9 Hypothyroidism, unspecified; M81.0 Age-related osteoporosis without current pathological fracture; Z95.4 Presence of other heart-valve replacement; Z95.5 Presence of coronary angioplasty implant and graft
CPT/HCPCS: 84480-90; 97161-GP; G0378; G8978-GP-CI; G8979-GP-CI; G8980-GP-CI; J1650

== ENCOUNTER → 2017-07-25 | Outpatient (CLI) | payer OTHER | LOC: FIMAGING 10:17 | PROVIDERS: ATTEND Internal Medicine Endocrinology, Diabetes & Metabolism | DX: E89.0 Postprocedural hypothyroidism (principal) ==